=== PATIENT | male | born 1975 ===

== ENCOUNTER 2022-07-18 18:44 | Observation (INO) | payer MEDICAID, OTHER, SELFPAY ==
--- NOTE | ~2022-07-18 | CT_ITS ---
EXAMINATION: CT ABDOMEN AND PELVIS WITH CONTRAST CLINICAL INFORMATION: Abdominal pain. COMPARISON: None available. TECHNIQUE: Multidetector volumetric images were obtained from the superior aspect of the liver through the pubic symphysis following administration 85 mL of Omnipaque 350 intravenous contrast. Sagittal and coronal reformatted images were obtained on the technologist's workstation. Oral contrast: No This CT examination was performed using dose optimization techniques as appropriate, variously including the following: *Automated exposure control *Adjustment of mA and/or kV according to patient size (this includes techniques or standardized protocols for targeted exams where dose is matched to indication/reason for exam; i.e. extremities or head) *Use of iterative reconstruction technique DLP: 652 mGy-cm FINDINGS: LUNG BASES: No focal consolidation or pleural effusion. LIVER, GALLBLADDER, AND BILIARY TREE: The liver is enlarged but otherwise normal in shape and attenuation. No focal hepatic lesion. The gallbladder is not visualized, either decompressed or surgically removed. The common bile duct is dilated measuring up to 0.921 cm in diameter with no hyperdense calculi. No significant intrahepatic biliary ductal dilatation. No fat stranding or free fluid in the gallbladder fossa to suspect acute cholecystitis. PANCREAS: Unremarkable. SPLEEN: Not visualized, correlate with history of splenectomy. ADRENAL GLANDS: Unremarkable. KIDNEYS AND URETERS: Symmetric nephrograms. No hydronephrosis or nephrolithiasis. No perinephric fat stranding. Small cortical water density cysts in the right kidney for which no imaging follow-up is recommended. BLADDER: Decompressed limiting its evaluation. GASTROINTESTINAL TRACT: Gastric dilatation containing fluid and heterogeneous debris. Multiple distended fluid filled loops of the small bowel, with also fluid throughout the colon and rectum. No significant wall thickening. No pericolonic inflammatory changes to suspect acute colitis or diverticulitis. The appendix measures up to 7 mm in diameter with no significant wall thickening or inflammatory changes. ABDOMINAL WALL: No significant hernia is appreciated. LYMPH NODES: Mild mesenteric vasculature engorgement with scattered prominent but subcentimeter in short axis mesenteric lymph nodes. Minimal mesenteric fat haziness. VASCULAR: Abdominal aorta is normal in caliber. PELVIC VISCERA: Unremarkable. OSSEOUS STRUCTURES: Nonspecific trabecular thickening and heterogeneity of the bone marrow. No aggressive appearing osseous abnormalities or acute fractures. CT/CT abdomen pelvis w IV con IMPRESSION: Fluid-filled loops of small and large bowel, including rectum suggesting gastroenteritis and diarrhea. There is associated mesenteric vasculature engorgement and prominent mesenteric lymph nodes, likely reactive. Prominent gastric dilatation that could be seen with postprandial state, gastroparesis or less likely in this particular case gastric outlet obstruction. Hepatomegaly. The spleen is not seen. There is nonspecific trabecular thickening and heterogeneity of the bone marrow, findings could indicate the presence of some chronic anemia or hematologic disorder such as sickle cells disease, correlate with clinical history. The gallbladder is not seen, possibly decompressed or surgically removed with nonspecific dilatation of the CBD measuring up to 1 cm. If choledocholithiasis is suspected correlation with MRCP could be performed.
[2022-07-18 18:51] VITALS: BP 135/93; PULSE 102; RESP 16; TEMP 36.8; O2SAT 96; BMI 32.3
[2022-07-18 20:05] LABS: Basophils Percent Auto 0.3 % (0-2); Eosinophils Absolute Auto 0.4 X10*3/uL (0.0-0.4); Eosinophils Percent Auto 2.5 % (0-4); Hematocrit 36.8 % (42.0-52.0); Hemoglobin 11.7 g/dl (14.0-18.0); Imm Gran Abs Auto 0.13 X10*3/uL (0.00-0.03); Imm Gran Pct Auto 0.9 % (0.0-0.4); Lymphocytes Absolute Auto 3.1 X10*3/uL (1.2-4.9); Lymphocytes Percent Auto 20.9 % (20-40); MANUAL DIFF FLAG SCAN; Mean Corpuscular HGB Conc 31.8 g/dl (31.0-36.0); Mean Corpuscular Hemoglobin 35.2 pg (27.0-33.0); Mean Platelet Volume 11.4 fL (9.4-12.4); Monocytes Percent Auto 19.9 % (2-11); Neutrophils Absolute Auto 8.3 x10*3/uL (2.0-8.3); Neutrophils Percent Auto 55.5 % (45-73); Platelet Count 376 X10*3/uL (160-400); Red Blood Count 3.32 X10*6/uL (4.60-5.80); SCAN SMEAR FLAG 1
[2022-07-18 20:12] LABS: Alanine Aminotransferase 38 U/L (0-40); Albumin Level 5.1 g/dL (3.5-5.0); Alkaline Phosphatase 129 U/L (39-117); Anion Gap 15 (12-20); Aspartate Amino Transferase 47 U/L (5-37); Bilirubin Direct 0.6 mg/dL (0.0-0.5); Bilirubin Total 2.8 mg/dL (0.0-1.0); Blood Urea Nitrogen 31 mg/dL (9-16); Calcium 9.3 mg/dL (8.4-10.2); Carbon Dioxide 16 mmol/L (22-29); Chloride 110 mmol/L (96-108); Estimated Glomerular Filt Rate > 60; Glucose Random 136 mg/dL (60-115); Lipase 31 U/L (8-78); Potassium 4.6 mmol/L (3.3-5.1); Sodium 136 mmol/L (135-145); Total Protein 9.2 g/dL (6.5-8.0)
[2022-07-18 20:16] LABS: Mean Corpuscular Volume 110.8 fL (80.0-98.0); NRBC Pct Auto 2.4 /100WBC (0.0-0.2)
[2022-07-18 20:30] VITALS: BP 127/89; PULSE 98; RESP 22; TEMP 37.2; O2SAT 99
--- NOTE | 2022-07-18 20:38 | PC.NURSE ---
Patient is alert ad oriented x4. VSS. Patient reports occasional cramp like pain in his abdomen. Patient c/o nausea and watery, brown diarrhea-about 10 episodes today. Labs drawn at the triage. IV line established in R AC 20 G. Patient oriented to ED room, call hale within patient's reach. Patient's daughter at bedside. Patient awaiting for ED provider.
[2022-07-18 21:07] LABS: SLIDE REVIEW VERIFIED
--- NOTE | 2022-07-18 21:32 | ED.NAVMDI ---
HPI - Nausea/Vomiting/Diarrhea General Chief complaint: Abdominal Pain Stated complaint: diarrhea 2 days Time Seen by Provider: 07/18/22 21:00 Source: patient and family Mode of arrival: ambulatory History of Present Illness HPI Narrative: 46-year-old male with history of chronic anemia who reports 2 days of watery diarrhea with associated nausea and chills after eating shrimp cocktail the other day but he states there were several others that ate the same meal and are not having similar symptoms. Patient denies any recent antibiotic use. Related Data Allergies Allergy/AdvReac Type Severity Reaction Status Date / Time Unable to Assess Allergy Verified 07/18/22 21:02 Review of Systems Review of Systems: Pertinent positives and negatives as stated in HPI [facility] Past Medical History Source: nursing notes reviewed Social History Social History Alcohol intake: current Alcohol intake frequency: holidays/special occasions only Alcohol type: beer Smoked in Last 30 Days: No Use of substances other than those prescribed or required for medical reasons: No Advance Directives: No Advance Directives Information Provided: No Physical Exam Vital Signs: Vital Signs: Last Vital Signs Temp 98.1 F 07/19/22 00:34 Pulse 77 07/19/22 00:34 Resp 21 H 07/19/22 00:34 BP 132/74 07/19/22 00:34 Pulse Ox 96 07/19/22 00:34 O2 Del Method Room Air 07/19/22 00:34 BMI result Body Mass Index 32.3 VITAL SIGNS: Reviewed. GENERAL: Well developed, well nourished, in no acute distress. HEAD: Normocephalic/atraumatic EYES: PERRLA, EOMI EARS: Ext canals without abnormality, TMs non-bulging and non-erythematous NOSE: Nares patent bilateral OROPHARYNX: no oral lesions noted, posterior pharynx clear and non-erythematous without noted tonsillar enlargement/erythema/exudates NECK: Supple, no adenopathy LUNGS: Normal breath sounds. No adventitious sounds or accessory muscle use. SpO2<99> CARDIOVASCULAR: Regular rate and rhythm without noted murmurs ABDOMEN: Soft, non-tender, non-distended with bowel sounds. MUSCULOSKELETAL: No tenderness, deformities, or effusions noted on gross inspection. EXTREMITIES: No cyanosis, clubbing or edema. SKIN: Inspection of the skin reveals no rashes NEUROLOGIC: Alert and oriented x 4. Strength and sensation to light touch were grossly intact x 4. Medications Administered Discontinued Medications Generic Name Dose Route Start Last Admin Trade Name Ziggy PRN Reason Stop Dose Admin Sodium Chloride 1,000 mls @ 999 mls/hr 07/18/22 21:15 07/18/22 22:52 Ns IV 07/18/22 22:15 Infused .Q1H1M DARIA Infusion Sodium Chloride 1,000 mls @ 999 mls/hr 07/18/22 21:45 07/18/22 22:54 Ns IV 07/18/22 22:45 Infused .Q1H1M DARIA Infusion Piperacillin Sod/Tazobactam 50 mls @ 100 mls/hr 07/18/22 21:36 07/18/22 22:15 Sod 3.375 gm/ Sodium Chloride IV 07/18/22 22:05 Infused ONCE ONE Infusion Iohexol 100 ml 07/18/22 22:05 07/18/22 22:05 Iohexol 350 Mg/Ml 100 Ml Infus..Btl IV 07/18/22 22:06 85 ml ONCE ONE Administration Ondansetron HCl 4 mg 07/18/22 21:35 07/18/22 21:53 Ondansetron Hcl 4 Mg/2 Ml Vial IVPUSH 07/18/22 21:36 4 mg ONCE ONE Administration Medical Decision Making Medical Decision Making [facility] Narrative: 2134: 46-year-old male with history and clinical presentation suggestive of food poisoning/gastroenteritis/diverticulitis/colitis. Review of investigations in my interpretation is this patient has abdominal pain with enteritis/leukocytosis. Patient has been rehydrated received antibiotics. I discussed the case with the inpatient hospitalist who accepts admission due to patient's underlying medical condition of sickle cell. Differential Diagnosis Please see the discussion above Consult Healthcare Provider Management of the patient was discussed with: Hospitalist Please see the discussion above Lab Data Please see the discussion above 07/18/22 19:43 07/18/22 19:43 Labs: Lab Results 07/18/22 07/18/22 07/18/22 Range/Units 19:43 19:43 21:28 WBC 15.0 H (4.8-10.8) X10*3/uL RBC 3.32 L (4.60-5.80) X10*6/uL Hgb 11.7 L (14.0-18.0) g/dl Hct 36.8 L (42.0-52.0) % MCV 110.8 H (80.0-98.0) fL MCH 35.2 H (27.0-33.0) pg MCHC 31.8 (31.0-36.0) g/dl RDW 13.0 (11.0-16.0) % Plt Count 376 (160-400) X10*3/uL MPV 11.4 (9.4-12.4) fL Immature Gran % (Auto) 0.9 H (0.0-0.4) % Neut % (Auto) 55.5 (45-73) % Lymph % (Auto) 20.9 (20-40) % [place] % (Auto) 19.9 H (2-11) % Eos % (Auto) 2.5 (0-4) % Baso % (Auto) 0.3 (0-2) % Lymph # (Auto) 3.1 (1.2-4.9) X10*3/uL [place] # (Auto) 3.0 H (0.1-1.2) X10*3/uL Eos # (Auto) 0.4 (0.0-0.4) X10*3/uL Baso # (Auto) 0.0 (0.0-0.2) X10*3/uL Abs Immat Gran (auto) 0.13 H (0.00-0.03) X10*3/uL Absolute Neuts (auto) 8.3 (2.0-8.3) x10*3/uL Absolute Nucleated RBC 0.360 H (0.0-0.012) X10*3/uL Nucleated RBC % (auto) 2.4 H (0.0-0.2) /100WBC Smear Tech's Comments VERIFIED Absolute Retic 0.866 H (0.026-0.095) X10*6/uL Percent Retic 26.3 H (0.5-1.8) % Immature Retic Fraction 22.6 H (2.3-13.4) % Retic Hgb Equivalent 37.1 H (30.0-35.0) pg Sodium 136 (135-145) mmol/L Potassium 4.6 (3.3-5.1) mmol/L Chloride 110 H (96-108) mmol/L Carbon Dioxide 16 L (22-29) mmol/L Anion Gap 15 (12-20) BUN 31 H (9-16) mg/dL Creatinine 1.12 (0.5-1.4) mg/dL Estim Creat Clear Calc 85.0 Estimated GFR > 60 Random Glucose 136 H (60-115) mg/dL Lactic Acid 0.9 (0.5-2.0) mmol/L Calcium 9.3 (8.4-10.2) mg/dL Total Bilirubin 2.8 H (0.0-1.0) mg/dL Direct Bilirubin 0.6 H (0.0-0.5) mg/dL AST 47 H (5-37) U/L ALT 38 (0-40) U/L Alkaline Phosphatase 129 H (39-117) U/L Total Protein 9.2 H (6.5-8.0) g/dL Albumin 5.1 H (3.5-5.0) g/dL Lipase 31 (8-78) U/L Urine Color Urine Appearance Urine pH (5.0-9.0) Ur Specific [place] (1.005-1.025) Urine Protein (Neg-Trace) mg/dL Urine Glucose (UA) (Negative) mg/dL Urine Ketones (Negative) mg/dL Urine Blood (Negative) Urine Nitrite (Negative) Ur Leukocyte Esterase (Negative) Urine RBC (0-2) /HPF Urine WBC (0-5) /HPF Ur Squamous Epith Cells (0-2) /HPF Urine Bacteria (None Seen) Hyaline Casts (0-2) /LPF COVID-19 ([facility]) (Negative) COVID-19 Clin Com 07/18/22 07/19/22 Range/Units 22:09 00:48 WBC (4.8-10.8) X10*3/uL RBC (4.60-5.80) X10*6/uL Hgb (14.0-18.0) g/dl Hct (42.0-52.0) % MCV (80.0-98.0) fL MCH (27.0-33.0) pg MCHC (31.0-36.0) g/dl RDW (11.0-16.0) % Plt Count (160-400) X10*3/uL MPV (9.4-12.4) fL Immature Gran % (Auto) (0.0-0.4) % Neut % (Auto) (45-73) % Lymph % (Auto) (20-40) % [place] % (Auto) (2-11) % Eos % (Auto) (0-4) % Baso % (Auto) (0-2) % Lymph # (Auto) (1.2-4.9) X10*3/uL [place] # (Auto) (0.1-1.2) X10*3/uL Eos # (Auto) (0.0-0.4) X10*3/uL Baso # (Auto) (0.0-0.2) X10*3/uL Abs Immat Gran (auto) (0.00-0.03) X10*3/uL Absolute Neuts (auto) (2.0-8.3) x10*3/uL Absolute Nucleated RBC (0.0-0.012) X10*3/uL Nucleated RBC % (auto) (0.0-0.2) /100WBC Smear Tech's Comments Absolute Retic (0.026-0.095) X10*6/uL Percent Retic (0.5-1.8) % Immature Retic Fraction (2.3-13.4) % Retic Hgb Equivalent (30.0-35.0) pg Sodium (135-145) mmol/L Potassium (3.3-5.1) mmol/L Chloride (96-108) mmol/L Carbon Dioxide (22-29) mmol/L Anion Gap (12-20) BUN (9-16) mg/dL Creatinine (0.5-1.4) mg/dL Estim Creat Clear Calc Estimated GFR Random Glucose (60-115) mg/dL Lactic Acid (0.5-2.0) mmol/L Calcium (8.4-10.2) mg/dL Total Bilirubin (0.0-1.0) mg/dL Direct Bilirubin (0.0-0.5) mg/dL AST (5-37) U/L ALT (0-40) U/L Alkaline Phosphatase (39-117) U/L Total Protein (6.5-8.0) g/dL Albumin (3.5-5.0) g/dL Lipase (8-78) U/L Urine Color Dark Yellow Urine Appearance Cloudy Urine pH 5.5 (5.0-9.0) Ur Specific [place] 1.025 (1.005-1.025) Urine Protein 100 (2+) H (Neg-Trace) mg/dL Urine Glucose (UA) Negative (Negative) mg/dL Urine Ketones Negative (Negative) mg/dL Urine Blood Trace H (Negative) Urine Nitrite Negative (Negative) Ur Leukocyte Esterase Negative (Negative) Urine RBC 0-2 (0-2) /HPF Urine WBC 0-5 (0-5) /HPF Ur Squamous Epith Cells 3-5 (0-2) /HPF Urine Bacteria None Seen (None Seen) Hyaline Casts 11-20 (0-2) /LPF COVID-19 ([facility]) Negative (Negative) COVID-19 Clin Com See Note Radiology Impression Radiologist Impression: My interpretation is in agreement with radiology's impression of the imaging study Discharge Plan Discharge Clinical Impression: Food poisoning, Enteritis, Sickle cell anemia without crisis Patient Disposition: Admitted As Inpatient
[2022-07-18 21:46] VITALS: BP 130/89; PULSE 99; RESP 20; TEMP 37.3; O2SAT 96
[2022-07-18 21:49] LABS: Lactic Acid 0.9 mmol/L (0.5-2.0)
[2022-07-18] MEDS: Piperacillin Sodium/Tazobactam 3.375 GM in 0.9 % Sodium Chloride 50 ML IV (21:50)
[2022-07-18] MEDS: 0.9 % Sodium Chloride 1,000 ML 999 ML IV ×2 (21:52→21:53)
[2022-07-18] MEDS: ondansetron HCL 4 MG/2 ML VIAL IVPUSH (21:53)
[2022-07-18] MEDS: iohexoL 350 MG/ML 100 ML INFUS..BTL IV (22:05)
[2022-07-18 22:19] LABS: Appearance Urine Cloudy; Color Urine Dark Yellow; Glucose Urine UA Negative (Negative); Leukocyte Esterase Urine Negative (Negative); Nitrite Urine Negative (Negative); PH 5.5 (5.0-9.0); Specific Gravity - Urine 1.025 (1.005-1.025); UMIC TRIGGER UACC YES; Urine Blood Trace (Negative); Urine Ketones Negative (Negative); Urine Protein 100 (2+) mg/dL (Neg-Trace)
[2022-07-18 22:37] LABS: Bacteria Urine None Seen (None Seen); RBC Urine 0-2 /HPF (0-2); WBC Urine 0-5 /HPF (0-5)
[2022-07-18 22:43] VITALS: BP 180/86; PULSE 96; RESP 17; O2SAT 94
[2022-07-18 23:47] VITALS: BP 107/65; PULSE 80; RESP 17; TEMP 37.2; O2SAT 95
[2022-07-19] VITALS (8 sets, daily range): BP systolic 111–135; BP diastolic 60–80; PULSE 63–77; RESP 18–21; TEMP 36.1–37.2; O2SAT 96–97; BMI 32.5
[2022-07-19 00:49] LABS: Immature Retic Fraction 22.6 % (2.3-13.4); Retic HGB Equivalent 37.1 pg (30.0-35.0)
[2022-07-19 01:09] LABS: RET ABN SCTR 1; Reticulocytes Absolute 0.866 X10*6/uL (0.026-0.095)
[2022-07-19 01:10] LABS: Reticulocyte Percent 26.3 % (0.5-1.8)
[2022-07-19 01:11] LABS: COVID-19 Test Negative (Negative); IDNOW Serial# 6674DD1D
[2022-07-19] MEDS: Lactated Ringers 1,000 ML 150 ML IVCONT ×4 (01:34→23:56)
--- NOTE | 2022-07-19 02:48 | PC.NURSE ---
Nurse to nurse report given to POWER Mendoza, patient to be transported to [id number] by instrument and electrical technician.
--- NOTE | 2022-07-19 03:05 | PC.NURSE ---
Pt arrived to the unit via stretcher, he is alert and oriented X 4, respiration is even and non-labored. Ambulate independently with a steady gait. Denies nausea, no vomiting. All questions answered, pt has no concerns at this time, daughter at bedside and aware of plan of care.
--- NOTE | 2022-07-19 06:41 | P.HPHOSP_ITS ---
History of Present Illness Date of Service: 07/19/22 Chief Complaint: Abdominal pain diarrhea This is a 46-year-old male with past medical history of sickle cell disease presents to the hospital with complaints of abdominal pain as well as diarrhea for the past 2 days. Pain is lower abdomen, constant, nonradiating, not relieving or exacerbating factors, 5/10, associated with 10 episodes of diarrhea daily. Patient denies any fever, has chills, denies any shortness of breath, has some nausea with no vomiting, no urinary symptoms and no lower extremity edema. Patient denies any history of recent antibiotic or hospitalization On arrival to the ED patient hemodynamically stable with no significant abnormal vitals Labs are significant for WBC count of 15, hemoglobin of 11.7, hematocrit 36.8 which is above his baseline, retic of 37.1, total bili of 2.8, direct of 0.6, AST of 47, ALT of 38 which is improved from his baseline, UA negative for any acute infection, GI panel pending, COVID-[address] shows evidence of gastroenteritis Review of Systems Review of Systems: Yes all other systems are reviewed and are negative PMFSH Social History Household Members: Family Housing: Apartment Alcohol intake: current Alcohol intake frequency: holidays/special occasions only Alcohol type: beer Patient Tobacco Use Status: Never used Tobacco Smoked in Last 30 Days: No Use of substances other than those prescribed or required for medical reasons: No Currently Displaying Signs/Symptoms of Drug Intoxication Withdrawal: No Have you been hit, kicked, punched, or otherwise hurt by someone within the past year? If so, by whom?: No Do you feel safe in your current relationship?: Yes Is there a partner from a previous relationship who is making you feel unsafe now?: No Are you made to feel afraid or neglected: No Advance Directives: No Advance Directives Information Provided: No Do you have thoughts of harming others: None Do you have a plan to hurt others: No Plan Recently lost weight without trying: No Eating poorly because of decreased appetite: No Nutrition Risks: No Nutritional Risk Meds Allergies Allergy/AdvReac Type Severity Reaction Status Date / Time Unable to Assess Allergy Verified 07/18/22 21:02 Active Medications: Current Medications Acetaminophen (Acetaminophen 325 Mg Tablet) 650 mg PO Q6H PRN PRN Reason: Pain, Mild (Pain Scale 1-3) Lactated Ringer's (Lr) 1,000 mls @ 150 mls/hr IVCONT .Q6H40M [facility] Last Admin: 07/19/22 01:34 Dose: 150 mls/hr Ondansetron HCl (Ondansetron Hcl 4 Mg/2 Ml Vial) 4 mg IVPUSH Q8H PRN PRN Reason: Nausea and Vomiting Sodium Chloride (0.9 % Sodium Chloride Flush 3 Ml Syringe) 3 ml IVFLUSH QSHIFT [facility] Physical Exam Vital Signs and Narrative: Vital Signs: Last Vital Signs Temp 97.5 F 07/19/22 03:32 Pulse 69 07/19/22 03:32 Resp 20 07/19/22 03:32 BP 129/72 07/19/22 03:32 Pulse Ox 96 07/19/22 03:32 O2 Del Method Room Air 07/19/22 03:32 BMI result Body Mass Index 32.5 Const: General: cooperative and no acute distress Orientation/consciousness: patient oriented x3 Eyes: General: appearance normal, both eyes and all related structures Resp: Effort & Inspection: normal respiratory effort Auscultation: clear to auscultation bilaterally Cardio: Rate: regular rate Rhythm: regular rhythm GI: Other: Abdomen is diffusely tender, no rebound or guarding Palpation (GI): Soft to palpation Auscultation: normal bowel sounds Skin: General skin exam: no rashes or lesions noted Neuro: General: patient oriented x3 Cognition (Neuro): normal cognition Extrem: General: Yes normal to inspection and Yes no pedal edema Results Labs 07/18/22 19:43 07/18/22 19:43 Labs: Laboratory Results - last 24 hr 07/18/22 07/18/22 07/18/22 19:43 19:43 21:28 MCV 110.8 H MCH 35.2 H MCHC 31.8 RDW 13.0 Plt Count 376 MPV 11.4 Immature Gran % (Auto) 0.9 H Neut % (Auto) 55.5 Lymph % (Auto) 20.9 [place] % (Auto) 19.9 H Eos % (Auto) 2.5 Baso % (Auto) 0.3 Lymph # (Auto) 3.1 [place] # (Auto) 3.0 H Eos # (Auto) 0.4 Baso # (Auto) 0.0 Abs Immat Gran (auto) 0.13 H Absolute Neuts (auto) 8.3 Absolute Nucleated RBC 0.360 H Nucleated RBC % (auto) 2.4 H Smear Tech's Comments VERIFIED Absolute Retic 0.866 H Percent Retic 26.3 H Immature Retic Fraction 22.6 H Retic Hgb Equivalent 37.1 H Anion Gap 15 Estim Creat Clear Calc 85.0 Estimated GFR > 60 Random Glucose 136 H Lactic Acid 0.9 Calcium 9.3 Total Bilirubin 2.8 H Direct Bilirubin 0.6 H AST 47 H ALT 38 Alkaline Phosphatase 129 H Total Protein 9.2 H Albumin 5.1 H Lipase 31 Urine Color Urine Appearance Urine pH Ur Specific [place] Urine Protein Urine Glucose (UA) Urine Ketones Urine Blood Urine Nitrite Ur Leukocyte Esterase Urine RBC Urine WBC Ur Squamous Epith Cells Urine Bacteria Hyaline Casts COVID-19 ([facility]) COVID-19 AMS VariCode 07/18/22 07/19/22 22:09 00:48 MCV MCH MCHC RDW Plt Count MPV Immature Gran % (Auto) Neut % (Auto) Lymph % (Auto) [place] % (Auto) Eos % (Auto) Baso % (Auto) Lymph # (Auto) [place] # (Auto) Eos # (Auto) Baso # (Auto) Abs Immat Gran (auto) Absolute Neuts (auto) Absolute Nucleated RBC Nucleated RBC % (auto) Smear Tech's Comments Absolute Retic Percent Retic Immature Retic Fraction Retic Hgb Equivalent Anion Gap Estim Creat Clear Calc Estimated GFR Random Glucose Lactic Acid Calcium Total Bilirubin Direct Bilirubin AST ALT Alkaline Phosphatase Total Protein Albumin Lipase Urine Color Dark Yellow Urine Appearance Cloudy Urine pH 5.5 Ur Specific [place] 1.025 Urine Protein 100 (2+) H Urine Glucose (UA) Negative Urine Ketones Negative Urine Blood Trace H Urine Nitrite Negative Ur Leukocyte Esterase Negative Urine RBC 0-2 Urine WBC 0-5 Ur Squamous Epith Cells 3-5 Urine Bacteria None Seen Hyaline Casts 11-20 COVID-19 ([facility]) Negative COVID-19 Clin Com See Note Imaging Radiologist's Impressions: Impressions Abdomen/Pelvis CT 07/18/22 22:08 IMPRESSION: Fluid-filled loops of small and large bowel, including rectum suggesting gastroenteritis and diarrhea. There is associated mesenteric vasculature engorgement and prominent mesenteric lymph nodes, likely reactive. Prominent gastric dilatation that could be seen with postprandial state, gastroparesis or less likely in this particular case gastric outlet obstruction. Hepatomegaly. The spleen is not seen. There is nonspecific trabecular thickening and heterogeneity of the bone marrow, findings could indicate the presence of some chronic anemia or hematologic disorder such as sickle cells disease, correlate with clinical history. The gallbladder is not seen, possibly decompressed or surgically removed with nonspecific dilatation of the CBD measuring up to 1 cm. If choledocholithiasis is suspected correlation with MRCP could be performed. Assessment and Plan (1) Gastroenteritis: Status: Acute (2) Sickle cell anemia without crisis: Status: Acute (3) Diarrhea: Qualifiers: Diarrhea type: infectious Qualified Code(s): A09 - Infectious g astroenteritis and colitis, unspecified Status: Acute Plan This is a 38-year-old male with past medical history of sickle cell presents to the hospital with complaints of abdominal pain and diarrhea found to have gastroenteritis. She is being admitted for observation to avoid dehydration in the setting of sickle cell # acute gastroenteritis - likely secondary to viral infection - GI panel as well as C diff pending - will treat with IV fluids, supportive measures # diarrhea - secondary to above - monitor resolution of symptoms - IV fluids - follow panel # sickle cell without crisis - patient will be on IV fluids to avoid dehydration - H&H stable - monitor symptoms DVT prophylaxis: Early ambulation Time Spent With Patient Time: Total time managing care of this patient today ____ minutes. Quality Stroke Does the patient have a stroke diagnosis?: No VTE Prior VTE?: No VTE Risk Level:: Medical - low VTE Device Contraindication: Treatment Not Indicated VTE Drug Contraindication: Treatment Not Indicated
[2022-07-19 06:47] LABS: Hematocrit 28.2 % (42.0-52.0); Mean Corpuscular HGB Conc 31.9 g/dl (31.0-36.0); Mean Corpuscular Hemoglobin 35.4 pg (27.0-33.0); Platelet Count 328 X10*3/uL (160-400); Red Blood Count 2.54 X10*6/uL (4.60-5.80); Red Cell Distribution Width 13.1 % (11.0-16.0)
[2022-07-19 06:51] LABS: NRBC Pct Auto 1.3 /100WBC (0.0-0.2); WBC ABN SCTR FOR CBC 1
[2022-07-19 07:06] LABS: Band Neutrophils Percent 1 % (3-5); Eosinophils Percent Manual 4 % (0-4); Lymphocytes Percent Manual 22 % (20-40); Monocytes Percent Manual 11 % (2-11); Neutrophils Percent Manual 62 % (45-73)
[2022-07-19 07:15] LABS: Acanthocytes 1+ (0-2) /OIF; Macrocytosis 2+ (15-30) /OIF; RBC Morphology NOTED
[2022-07-19 07:16] LABS: Burr Cells 1+ (0-2) /OIF; Target Cells 1+ (5-14) /OIF
[2022-07-19 07:18] LABS: Howell Jolly Bodies PRESENT; Hypochromasia 1+ (5-14) /OIF; Polychromasia 1+ (0-2) /OIF
[2022-07-19 07:20] LABS: Eosinophils Absolute Manual 0.6 X10*3/uL (0.0-0.4); Lymphocytes Absolute Manual 3.3 X10*3/uL (1.2-4.9); Monocytes Absolute Manual 1.6 X10*3/uL (0.1-1.2); Neutrophils Absolute Manual 9.4 X10*3/uL (2.0-8.3); Platelet Estimate NORMAL (NORMAL); Platelet Morphology Comment NORMAL; White Blood Count 14.9 X10*3/uL (4.8-10.8)
[2022-07-19 08:10] LABS: Anion Gap 10 (12-20); Blood Urea Nitrogen 24 mg/dL (9-16); Calcium 8.3 mg/dL (8.4-10.2); Carbon Dioxide 17 mmol/L (22-29); Chloride 115 mmol/L (96-108); Creatinine Clr Calc Pharmacy 125.8; Estimated Glomerular Filt Rate > 60; Glucose Random 108 mg/dL (60-115); Potassium 3.9 mmol/L (3.3-5.1); Sodium 138 mmol/L (135-145)
--- NOTE | 2022-07-19 08:34 | PHA.MEDREC ---
Pharmacy Consult ? Medication Reconciliation Pharmacy has completed the medication reconciliation. Spoke to patient to confirm meds. Patient does not take any medications regularly at home. Had previously taken Imodium and Pepto-Bismol on 07/18/22 because of diarrhea.
[2022-07-19 11:02] LABS: Adenovirus F 40/41 Not Detected (Not Detect.); Astrovirus Not Detected (Not Detect.); Campylobacter Not Detected (Not Detect.); Cryptosporidium Not Detected (Not Detect.); Cyclospora cayetanensis Not Detected (Not Detect.); E. coli EAEC Not Detected (Not Detect.); E. coli EPEC Not Detected (Not Detect.); E. coli ETEC Not Detected (Not Detect.); E. coli STEC Not Detected (Not Detect.); Entamoeba histolytica Not Detected (Not Detect.); Giardia lamblia Not Detected (Not Detect.); Norovirus GI/GII Not Detected (Not Detect.); Plesiomonas shigelloides Not Detected (Not Detect.); Rotavirus A Detected (Not Detect.); Salmonella Not Detected (Not Detect.); Sapovirus Not Detected (Not Detect.); Shigella sp./EIEC Not Detected (Not Detect.); Vibrio Not Detected (Not Detect.); Vibrio Cholerae Not Detected (Not Detect.); Yersinia enterocolitica Not Detected (Not Detect.)
--- NOTE | 2022-07-19 11:16 | HO.PM.IMPN ---
Subjective Subjective Date of Service: 07/19/22 Interval History: seen and examined this morning follow up for diarrhea history obtained with the assistance of a site interpreter still with diarrhea; intermittent crampy abdominal pain Review of Systems Review of Systems: Yes all other systems are reviewed and are negative Constitutional Constitutional: Reports chills and Denies fever(s) Cardiovascular Cardiovascular: Denies chest pain, Denies palpitations and Denies dyspnea Respiratory Respiratory: Denies cough and Denies dyspnea Gastrointestinal Gastrointestinal: Reports abdominal pain, Reports diarrhea, Denies nausea and Denies vomiting Endocrine Endocrine: Denies palpitations Physical Exam Vital Signs: Vital Signs: Last Vital Signs Temp 97.0 F 07/19/22 07:25 Pulse 65 07/19/22 07:25 Resp 18 07/19/22 07:25 BP 111/60 07/19/22 07:25 Pulse Ox 97 07/19/22 07:25 O2 Del Method Room Air 07/19/22 07:25 BMI result Body Mass Index 32.5 Const: General: alert and awake Nutritional Appearance: overweight Orientation/consciousness: patient oriented x3 Resp: Effort & Inspection: normal respiratory effort and able to speak in complete sentences Cardio: Rate: regular rate Heart sounds: S1 normal heart sound present and S2 normal heart sound present GI: Inspection: No distended Palpation (GI): Soft to palpation and nontender Neuro: General: patient oriented x3 and CN's II-XI intact bilaterally Extrem: General: Yes no pedal edema Objective Data Active Medications Acetaminophen (Acetaminophen 325 Mg Tablet) 650 mg PO Q6H PRN PRN Reason: Pain, Mild (Pain Scale 1-3) Lactated Ringer's (Lr) 1,000 mls @ 150 mls/hr IVCONT .Q6H40M [facility] Last Admin: 07/19/22 08:45 Dose: 150 mls/hr Documented By: ALYSSA Ondansetron HCl (Ondansetron Hcl 4 Mg/2 Ml Vial) 4 mg IVPUSH Q8H PRN PRN Reason: Nausea and Vomiting Pharmacy Consult (Consult Rx Perform Med Rec) 1 each MISCELLANE ONCE PRN PRN Reason: Consult order Sodium Chloride (0.9 % Sodium Chloride Flush 3 Ml Syringe) 3 ml IVFLUSH QSHIFT [facility] Last Admin: 07/19/22 08:46 Dose: Not Given Documented By: ALYSSA Non-Admin Reason: IV Running Labs 07/19/22 06:32 07/19/22 06:32 Labs: Laboratory Results - last 24 hr 07/18/22 07/18/22 07/18/22 19:43 19:43 21:28 MCV 110.8 H MCH 35.2 H MCHC 31.8 RDW 13.0 Plt Count 376 MPV 11.4 Immature Gran % (Auto) 0.9 H Neut % (Auto) 55.5 Lymph % (Auto) 20.9 [place] % (Auto) 19.9 H Eos % (Auto) 2.5 Baso % (Auto) 0.3 Lymph # (Auto) 3.1 [place] # (Auto) 3.0 H Eos # (Auto) 0.4 Baso # (Auto) 0.0 Abs Immat Gran (auto) 0.13 H Absolute Neuts (auto) 8.3 Absolute Nucleated RBC 0.360 H Nucleated RBC % (auto) 2.4 H Neutrophils % (Manual) Band Neutrophils % Lymphocytes % (Manual) Monocytes % (Manual) Eosinophils % (Manual) Abs Neuts (Manual) Lymphocytes # (Manual) Monocytes # (Manual) Eosinophils # (Manual) Platelet Estimate Plt Morphology Comment RBC Morphology Polychromasia Hypochromasia Macrocytosis Target Cells Negrete-Tusculum Bodies Grady Cells Acanthocytes (Spur) Smear Tech's Comments VERIFIED Absolute Retic 0.866 H Percent Retic 26.3 H Immature Retic Fraction 22.6 H Retic Hgb Equivalent 37.1 H Anion Gap 15 Estim Creat Clear Calc 85.0 Estimated GFR > 60 Random Glucose 136 H Lactic Acid 0.9 Calcium 9.3 Total Bilirubin 2.8 H Direct Bilirubin 0.6 H AST 47 H ALT 38 Alkaline Phosphatase 129 H Total Protein 9.2 H Albumin 5.1 H Lipase 31 Urine Color Urine Appearance Urine pH Ur Specific [place] Urine Protein Urine Glucose (UA) Urine Ketones Urine Blood Urine Nitrite Ur Leukocyte Esterase Urine RBC Urine WBC Ur Squamous Epith Cells Urine Bacteria Hyaline Casts Stl C. cayetanensis PCR Stool Rotavirus A PCR Stl Adenov F 40/41 PCR Stool Astrovirus (PCR) Stool Campylobacter PCR Stool Cryptosporidium PCR Stl Sh Tox Pr E STEC PCR Stool E coli O157 PCR Stl Enterotoxigenic E PCR Stool EPEC (PCR) Stool EAEC (PCR) Stl E. histolytica PCR Stool Giardia Lamblia PCR Stl P. shigelloides PCR Stool Salmonella PCR Stool Sapovirus (PCR) Stl Shigella/EIEC PCR St Y.enterocolitica PCR Stool Vibrio (PCR) Stl Vibrio cholerae PCR Stl Norovirus GI/GII PCR COVID-19 ([place]) COVID-19 [facility] 07/18/22 07/18/22 07/19/22 21:46 22:09 00:48 MCV MCH MCHC RDW Plt Count MPV Immature Gran % (Auto) Neut % (Auto) Lymph % (Auto) [place] % (Auto) Eos % (Auto) Baso % (Auto) Lymph # (Auto) [place] # (Auto) Eos # (Auto) Baso # (Auto) Abs Immat Gran (auto) Absolute Neuts (auto) Absolute Nucleated RBC Nucleated RBC % (auto) Neutrophils % (Manual) Band Neutrophils % Lymphocytes % (Manual) Monocytes % (Manual) Eosinophils % (Manual) Abs Neuts (Manual) Lymphocytes # (Manual) Monocytes # (Manual) Eosinophils # (Manual) Platelet Estimate Plt Morphology Comment RBC Morphology Polychromasia Hypochromasia Macrocytosis Target Cells Negrete-Tusculum Bodies Michael Cells Acanthocytes (Spur) Smear Tech's Comments Absolute Retic Percent Retic Immature Retic Fraction Retic Hgb Equivalent Anion Gap Estim Creat Clear Calc Estimated GFR Random Glucose Lactic Acid Calcium Total Bilirubin Direct Bilirubin AST ALT Alkaline Phosphatase Total Protein Albumin Lipase Urine Color Dark Yellow Urine Appearance Cloudy Urine pH 5.5 Ur Specific [place] 1.025 Urine Protein 100 (2+) H Urine Glucose (UA) Negative Urine Ketones Negative Urine Blood Trace H Urine Nitrite Negative Ur Leukocyte Esterase Negative Urine RBC 0-2 Urine WBC 0-5 Ur Squamous Epith Cells 3-5 Urine Bacteria None Seen Hyaline Casts 11-20 Stl C. cayetanensis PCR Not Detected Stool Rotavirus A PCR Detected A Stl Adenov F 40/41 PCR Not Detected Stool Astrovirus (PCR) Not Detected Stool Campylobacter PCR Not Detected Stool Cryptosporidium PCR Not Detected Stl Sh Tox Pr E STEC PCR Not Detected Stool E coli O157 PCR Not applicable Stl Enterotoxigenic E PCR Not Detected Stool EPEC (PCR) Not Detected Stool EAEC (PCR) Not Detected Stl E. histolytica PCR Not Detected Stool Giardia Lamblia PCR Not Detected Stl P. shigelloides PCR Not Detected Stool Salmonella PCR Not Detected Stool Sapovirus (PCR) Not Detected Stl Shigella/EIEC PCR Not Detected St Y.enterocolitica PCR Not Detected Stool Vibrio (PCR) Not Detected Stl Vibrio cholerae PCR Not Detected Stl Norovirus GI/GII PCR Not Detected COVID-19 ([place]) Negative COVID-19 Clin Com See Note 07/19/22 07/19/22 06:32 06:32 MCV 111.0 H MCH 35.4 H MCHC 31.9 RDW 13.1 Plt Count 328 MPV 11.0 Immature Gran % (Auto) Cancelled Neut % (Auto) Cancelled Lymph % (Auto) Cancelled [place] % (Auto) Cancelled Eos % (Auto) Cancelled Baso % (Auto) Cancelled Lymph # (Auto) Cancelled [place] # (Auto) Cancelled Eos # (Auto) Cancelled Baso # (Auto) Cancelled Abs Immat Gran (auto) Cancelled Absolute Neuts (auto) Cancelled Absolute Nucleated RBC 0.200 H Nucleated RBC % (auto) 1.3 H Neutrophils % (Manual) 62 Band Neutrophils % 1 L Lymphocytes % (Manual) 22 Monocytes % (Manual) 11 Eosinophils % (Manual) 4 Abs Neuts (Manual) 9.4 H Lymphocytes # (Manual) 3.3 Monocytes # (Manual) 1.6 H Eosinophils # (Manual) 0.6 H Platelet Estimate NORMAL Plt Morphology Comment NORMAL RBC Morphology NOTED Polychromasia 1+ (0-2) Hypochromasia 1+ (5-14) Macrocytosis 2+ (15-30) Target Cells 1+ (5-14) Negrete-Tusculum Bodies PRESENT Grady Cells 1+ (0-2) Acanthocytes (Spur) 1+ (0-2) Smear Tech's Comments Absolute Retic Percent Retic Immature Retic Fraction Retic Hgb Equivalent Anion Gap 10 L Estim Creat Clear Calc 125.8 Estimated GFR > 60 Random Glucose 108 Lactic Acid Calcium 8.3 L D Total Bilirubin Direct Bilirubin AST ALT Alkaline Phosphatase Total Protein Albumin Lipase Urine Color Urine Appearance Urine pH Ur Specific [place] Urine Protein Urine Glucose (UA) Urine Ketones Urine Blood Urine Nitrite Ur Leukocyte Esterase Urine RBC Urine WBC Ur Squamous Epith Cells Urine Bacteria Hyaline Casts Stl C. cayetanensis PCR Stool Rotavirus A PCR Stl Adenov F 40/41 PCR Stool Astrovirus (PCR) Stool Campylobacter PCR Stool Cryptosporidium PCR Stl Sh Tox Pr E STEC PCR Stool E coli O157 PCR Stl Enterotoxigenic E PCR Stool EPEC (PCR) Stool EAEC (PCR) Stl E. histolytica PCR Stool Giardia Lamblia PCR Stl P. shigelloides PCR Stool Salmonella PCR Stool Sapovirus (PCR) Stl Shigella/EIEC PCR St Y.enterocolitica PCR Stool Vibrio (PCR) Stl Vibrio cholerae PCR Stl Norovirus GI/GII PCR COVID-19 ([place]) COVID-19 Clin Com Assessment and Plan (1) Diarrhea: Status: Acute (2) Gastroenteritis: Status: Acute Plan This is a 38-year-old male with past medical history of sickle cell presents to the hospital with complaints of abdominal pain and diarrhea found to have gastroenteritis. She is being admitted for observation to avoid dehydration in the setting of sickle cell acute gastroenteritis GI panel + for rotavirus continue IV fluids, supportive measures sickle cell without crisis continue IVF H/H at baseline AZEB SCr 1.12 on admission, down to 0.76 with IVF r/t dehydration DVT prophylaxis: Early ambulation attending: Dr. William Time Spent With Patient Time: Total time managing care of this patient today ____ minutes. Quality Stroke Does the patient have a stroke diagnosis?: No VTE Prior VTE?: No VTE Risk Level:: Medical - low VTE Device Contraindication: Treatment Not Indicated VTE Drug Contraindication: Treatment Not Indicated
[2022-07-19 13:17] LABS: CDiff Gene PCR NEGATIVE (Negative)
--- NOTE | 2022-07-19 15:58 | MHC.CM.PN ---
[facility]STER 07/19/22 DELIVERED TO BEDSIDE AND PLACED IN CHART, EMR REVIEWED, PT ADMITTED W/GASTROENTERITIS AND DEHYDRATION, CM MET W/PT WHO IS A&OX4, PT REPORTS HE LIVES W/HIS AND 3 DTRS, IS INDEP W/ALL CARE, IS WORKING, DENIES USE OF DME/SERVICES, PT DOES NOT ANTIC NEED FOR SERVICES UPON D/C. PT VERIFIES HIS PCP IS NOW VINEET SINGH AT [facility], MODERNA X2 AND REPORTS HIS JESSI SZYMANSKI [phone] IS HIS HCP AND RPEORTS HE COMPLETED IT AT [facility],CM WILL NEED TO FOLLOW UP THURSDAY. D/C PLAN: HOME NO SERVICES W/ FOR TRANSPORT
--- NOTE | 2022-07-19 22:16 | PC.NURSE ---
Patient reports diarrhea for past 3 days which is not getting any better,positive for rotavirus ,Dr. Schumacher notified
[2022-07-20 00:55] VITALS: BP 125/61; PULSE 65; RESP 16; TEMP 36.7; O2SAT 97
[2022-07-20 04:00] VITALS: BP 111/57; PULSE 62; RESP 20; TEMP 36.5; O2SAT 96
[2022-07-20] MEDS: Lactated Ringers 1,000 ML 150 ML IVCONT (06:28)
[2022-07-20 06:33] LABS: Alanine Aminotransferase 34 U/L (0-40); Albumin Level 3.7 g/dL (3.5-5.0); Alkaline Phosphatase 91 U/L (39-117); Anion Gap 8 (12-20); Aspartate Amino Transferase 34 U/L (5-37); Bilirubin Direct 0.4 mg/dL (0.0-0.5); Bilirubin Total 3.1 mg/dL (0.0-1.0); Blood Urea Nitrogen 21 mg/dL (9-16); Calcium 8.3 mg/dL (8.4-10.2); Carbon Dioxide 18 mmol/L (22-29); Chloride 117 mmol/L (96-108); Creatinine Clr Calc Pharmacy 140.7; Estimated Glomerular Filt Rate > 60; Glucose Random 96 mg/dL (60-115); Potassium 3.8 mmol/L (3.3-5.1); Sodium 139 mmol/L (135-145); Total Protein 6.4 g/dL (6.5-8.0)
[2022-07-20 07:34] VITALS: BP 107/57; PULSE 59; RESP 20; TEMP 36.8; O2SAT 95
[2022-07-20] MEDS: 0.9 % Sodium Chloride Flush 3 ML SYRINGE IVFLUSH (08:48)
--- NOTE | 2022-07-20 09:58 | P.DS_ITS ---
DS: Providers Provider Date of Service: 07/20/22 Date of admission: 07/19/22 01:14 Date of discharge: 07/20/22 Primary care physician: [facility] Attending physician on discharge: Paco Quan Discharging clinician: Nathalie Garay DS: Diagnosis Discharge Diagnosis (1) Diarrhea: Status: Acute (2) Gastroenteritis: Status: Acute (3) Rotavirus infection: Status: Acute DS: Summary Hospital Course Hospital Course: From H&P on day of admission This is a 46-year-old male with past medical histo ry of sickle cell disease presents to the hospital with complaints of abdominal pain as well as diarrhea for the past 2 days.? Pain is lower abdomen, constant, nonradiating, not relieving or exacerbating factors, 5/10, associated with 10 episodes of diarrhea daily.? Patient denies any fever, has chills, denies any shortness of breath, has some nausea with no vomiting, no urinary symptoms and no lower extremity edema.? Patient denies any history of recent antibiotic or hospitalization On arrival to the ED patient hemodynamically stable with no significant abnormal vitals Labs are significant for WBC count of 15, hemoglobin of 11.7, hematocrit 36.8 which is above his baseline, retic of 37.1, total bili of 2.8, direct of 0.6, AST of 47, ALT of 38 which is improved from his baseline, UA negative for any acute infection, GI panel pending, COVID-[address] shows evidence of gastroenteritis viral gastroenteritis patient was admitted to the hospital for gastroenteritis. He was treated with IV fluid, antiemetics. GI panel was obtained any tested positive for rotavirus. His abdominal pain resolved and diarrhea gradually improved. He is tolerating a full diet and is eager to return home. Hand washing precautions was discussed with the patient and at the bedside. AZEB with SCr 1.12 on admission, down to 0.68 with IVF. Time Spent with Patient Time attestation: Total time managing care of this patient today ____ minutes. Discharge coordination time: Greater than 30 minutes Quality: Safe Use of Opioids Does Pt have an Active Cancer Diagnosis on the Problem List?: No Quality: Stroke Does the patient have a stroke diagnosis?: No Physical Exam Vital Signs: Vital Signs: Last Vital Signs Temp 98.2 F 07/20/22 07:34 Pulse 59 07/20/22 07:34 Resp 20 07/20/22 07:34 BP 107/57 L 07/20/22 07:34 Pulse Ox 95 07/20/22 07:34 O2 Del Method Room Air 07/20/22 07:34 BMI result Body Mass Index 32.5 Const: General: alert and awake Nutritional Appearance: overweight Orientation/consciousness: patient oriented x3 Resp: Effort & Inspection: normal respiratory effort and able to speak in complete sentences Cardio: Rate: regular rate Heart sounds: S1 normal heart sound present and S2 normal heart sound present GI: Inspection: No distended Palpation (GI): Soft to palpation and nontender Neuro: General: patient oriented x3 and CN's II-XI intact bilaterally Extrem: General: Yes no pedal edema DS: Data Data Completed and Pending Labs on day of discharge: Laboratory Results - last 24 hr 07/18/22 07/19/22 07/20/22 21:46 12:20 05:57 Sodium 139 Potassium 3.8 Chloride 117 H Carbon Dioxide 18 L Anion Gap 8 L BUN 21 H Creatinine 0.68 Estim Creat Clear Calc 140.7 Estimated GFR > 60 Random Glucose 96 Calcium 8.3 L Total Bilirubin 3.1 H Direct Bilirubin 0.4 AST 34 ALT 34 Alkaline Phosphatase 91 Total Protein 6.4 L Albumin 3.7 Stl C. cayetanensis PCR Not Detected Stool Rotavirus A PCR Detected A Stl Adenov F 40/41 PCR Not Detected Stool Astrovirus (PCR) Not Detected Stool Campylobacter PCR Not Detected Stool Cryptosporidium PCR Not Detected Stl Sh Tox Pr E STEC PCR Not Detected Stool E coli O157 PCR Not applicable Stl Enterotoxigenic E PCR Not Detected Stool EPEC (PCR) Not Detected Stool EAEC (PCR) Not Detected Stl E. histolytica PCR Not Detected Stool Giardia Lamblia PCR Not Detected Stl P. shigelloides PCR Not Detected Stool Salmonella PCR Not Detected Stool Sapovirus (PCR) Not Detected Stl Shigella/EIEC PCR Not Detected St Y.enterocolitica PCR Not Detected Stool Vibrio (PCR) Not Detected Stl Vibrio cholerae PCR Not Detected Stl Norovirus GI/GII PCR Not Detected C. difficile Tox B Gene NEGATIVE Preliminary micro results at discharge 07/18/22 21:28 Blood Culture - Preliminary Blood - Venous No growth after 24 hours. 07/18/22 21:28 Blood Culture - Preliminary Blood - Venous No growth after 24 hours. Discharge Plan Discharge Anticipated Discharge Date/Time: 07/20/22 10:03 Patient Disposition: Home, Self-Care Discharge Diagnosis: Rotavirus gastroenteritis Referrals: [place] [Primary Care Provider] - 1 Week Discharge Medications: Continued loperamide [Imodium] 2 mg Capsule 2 mg PO Q6H PRN (Reason: Diarrhea) Rx Instructions: max 8mg/day Pepto-Bismol 525 mg/15 mL Suspension 525 mg PO Q30M PRN (Reason: Diarrhea) Rx Instructions: do not exceed 8 doses in a 24 hour period Discharge Orders: Discharge Order (Routine); Ordered 07/20/22 Ordered By: Nathalie Garay Activity on Discharge: As tolerated Stand Alone Forms: Patient Portal Discharge page Care Plan Goals: Resolution of diarrhea Health Concerns: diarrhea secondary to Rotavirus Plan of Treatment: advance diet as tolerated. Keep plenty of fluid to stay hydrated wash hands frequently. Use soap and water. If soap and water are not available, use a gel-based hand green lumber grader. Wash your hands after you use the bathroom, change a child's diapers, or sneeze. Wash your hands before you prepare or eat food. Assessment: see discharge summary
--- NOTE | 2022-07-20 10:15 | MHC.CM.PN ---
PT MEDICALLY CLEARED FRO D/C HOME SELF CARE W/FAMILY FOR TRANSPORT
== END 2022-07-20 10:28 | disposition home or self-care (01) ==
LOC: HO.ED 07-19 01:31 → HO.EDOVER 07-19 01:34 → HO.IMC 07-19 02:11
PROVIDERS: Admitting Provider Internal Medicine; Emergency Provider Student in an Organized Health Care Education/Training Program; PCP Family Medicine; Visit Provider Physician Assistant Medical
DX: A08.0 Rotaviral enteritis (principal); D57.1 Sickle-cell disease without crisis; R10.30 Lower abdominal pain, unspecified
CPT/HCPCS: 36415; 74177; 80048; 80076; 81001; 83605; 83690; 85007; 85025; 85027; 85045; 87040; 87493; 87507; 87635; 96361; 96365; 96375; 99222; 99285; J2405; J2543; Q9967

== ENCOUNTER 2023-01-23 10:43 | Outpatient (REF) | payer MEDICAID, OTHER, SELFPAY ==
--- NOTE | ~2023-01-23 | XR_ITS ---
STUDY: Bilateral knees INDICATION: Worsening chronic bilateral knee pain. TECHNIQUE: 3 view right knee, 4 view left knee FINDINGS: Right: No fracture or dislocation. Alignment and articulations maintained. Tiny suprapatellar effusion questioned. Left: Mild medial knee joint narrowing. No fracture or dislocation. Question small effusion. XR/XR knee RT 3V IMPRESSION: No acute bony pathology bilateral knees. Mild left medial knee joint narrowing. Question small suprapatellar effusions.
--- NOTE | ~2023-01-23 | XR_ITS ---
STUDY: Bilateral knees INDICATION: Worsening chronic bilateral knee pain. TECHNIQUE: 3 view right knee, 4 view left knee FINDINGS: Right: No fracture or dislocation. Alignment and articulations maintained. Tiny suprapatellar effusion questioned. Left: Mild medial knee joint narrowing. No fracture or dislocation. Question small effusion. XR/XR knee LT 3V IMPRESSION: No acute bony pathology bilateral knees. Mild left medial knee joint narrowing. Question small suprapatellar effusions.
[2023-01-23 13:14] LABS: MANUAL DIFF FLAG NO
[2023-01-23 13:21] LABS: Basophils Absolute Auto 0.1 X10*3/uL (0.0-0.2); Basophils Percent Auto 0.8 % (0-2); Eosinophils Absolute Auto 0.2 X10*3/uL (0.0-0.4); Eosinophils Percent Auto 2.1 % (0-4); Hematocrit 30.5 % (42.0-52.0); Hemoglobin 9.6 g/dl (14.0-18.0); Imm Gran Abs Auto 0.06 X10*3/uL (0.00-0.03); Imm Gran Pct Auto 0.7 % (0.0-0.4); Lymphocytes Absolute Auto 2.7 X10*3/uL (1.2-4.9); Lymphocytes Percent Auto 30.8 % (20-40); Mean Corpuscular HGB Conc 31.5 g/dl (31.0-36.0); Mean Corpuscular Hemoglobin 36.8 pg (27.0-33.0); Monocytes Absolute Auto 1.1 X10*3/uL (0.1-1.2); Monocytes Percent Auto 12.3 % (2-11); Neutrophils Absolute Auto 4.7 x10*3/uL (2.0-8.3); Neutrophils Percent Auto 53.3 % (45-73); Platelet Count 323 X10*3/uL (160-400); Red Blood Count 2.61 X10*6/uL (4.60-5.80); Red Cell Distribution Width 13.1 % (11.0-16.0); White Blood Count 8.8 X10*3/uL (4.8-10.8)
[2023-01-23 13:25] LABS: Mean Corpuscular Volume 116.9 fL (80.0-98.0); NRBC Pct Auto 4.1 /100WBC (0.0-0.2)
[2023-01-23 15:22] LABS: Alanine Aminotransferase 32 U/L (0-40); Albumin Level 4.6 g/dL (3.5-5.0); Alkaline Phosphatase 121 U/L (39-117); Anion Gap 11 (12-20); Aspartate Amino Transferase 35 U/L (5-37); Bilirubin Direct 0.6 mg/dL (0.0-0.5); Bilirubin Total 3.7 mg/dL (0.0-1.0); Blood Urea Nitrogen 16 mg/dL (9-16); Calcium 9.3 mg/dL (8.4-10.2); Carbon Dioxide 25 mmol/L (22-29); Chloride 108 mmol/L (96-108); Cholesterol 159 mg/dL (<200); Estimated Glomerular Filt Rate > 60; Free T4 (Free Thyroxine) 0.86 ng/dL (0.71-1.85); Glucose Random 102 mg/dL (60-115); HDL Cholesterol 47 mg/dL (>40); Iron 305 mcg/dL (45-160); LDL Cholesterol Calculated 90 mg/dL (<100); Percent Iron Saturation 92 % (15-50); Potassium 4.2 mmol/L (3.3-5.1); Sodium 140 mmol/L (135-145); Thyroid Stimulating Hormone 1.18 uIU/mL (0.32-4.0); Total Iron Binding Capacity 330 mcg/dL (228-428); Triglycerides 114 mg/dL (<150); Unsaturated Iron Binding < 25 ug/dL
[2023-01-23 15:33] LABS: CT PCR NOT DETECTED (Not Detect.); NG PCR NOT DETECTED (Not Detect.)
[2023-01-26 07:53] LABS: Syphilis Screen Nonreactive (Nonreactive)
[2023-01-26 08:40] LABS: HBS Num1 0.31 mIU/mL (0-7.99); HBsAGNum1 0.37 S/CO (0.00-0.99); HIV AB/AG Nonreactive (Nonreactive); HIV Num 1 0.05 S/CO (0.00-0.99); Hepatitis B Surface Antigen Negative (Negative); ~HepC Num1 0.07 S/CO (0.00-0.79); ~Hepatitis B Surface Antibody NONREACTIVE (Nonreactive); ~Hepatitis C Antibody Nonreactive (Nonreactive)
[2023-01-26 08:43] LABS: Hepatitis A Antibody IgM 0.26 Index (0-0.79); ~Hepatitis A Antibody IgM Nonreactive (Nonreactive)
== END 2023-01-23 10:44 | disposition home or self-care (01) ==
LOC: HO.HHCL 10:43
PROVIDERS: Visit Provider Family Medicine
DX: Z00.00 Encounter for general adult medical examination without abnormal findings (principal); G89.29 Other chronic pain; M25.561 Pain in right knee; M25.562 Pain in left knee; Z90.81 Acquired absence of spleen
CPT/HCPCS: 0353U; 73562; 80048; 80061; 80076; 82306; 83036; 83540; 84439; 84443; 85025; 86684; 86706; 86709; 86780; 86803; 87340; 87389

== ENCOUNTER 2023-06-27 14:08 | Emergency (ER) | payer MEDICAID, OTHER, SELFPAY ==
[2023-06-27 14:10] VITALS: BP 133/53; PULSE 71; RESP 18; TEMP 37.1; O2SAT 96; BMI 33.8
--- NOTE | 2023-06-27 14:10 | ED.GENADULT ---
HPI - General Adult General Chief complaint: General Medical Stated complaint: head inj Time Seen by Provider: 06/27/23 14:10 Source: patient Mode of arrival: ambulatory Limitations: no limitations History of Present Illness HPI narrative: Patient is a 47-year-old male presenting to the emergency department with complaint of tick bite to neck. States he noted the tick about an hour ago and removed as much as he could at home. States he was outdoors around 24 hours ago, so the tick could have been on for up to a day. Denies any other symptoms. complaint: tick bite Onset (ago): hour(s) Location: neck Associated symptoms: denies other symptoms Treatments prior to arrival: other (removal of tick) Related Data Home Medications Medication Instructions Recorded Confirmed bismuth subsalicylate 525 mg/15 mL 525 mg PO Q30M PRN Diarrhea 07/19/22 07/19/22 oral suspension loperamide 2 mg capsule 2 mg PO Q6H PRN Diarrhea 07/19/22 07/19/22 Allergies Allergy/AdvReac Type Severity Reaction Status Date / Time No Known Allergies Allergy Verified 06/27/23 14:13 Review of Systems Review of Systems: As per HPI. Yes all other systems are reviewed and are negative Constitutional: Constitutional: Reports as per HPI [facility] Social History Social History Household Members: Family Housing: Apartment Alcohol intake: current Alcohol intake frequency: holidays/special occasions only Alcohol type: beer Patient Tobacco Use Status: Never used Tobacco service: No Current occupational status: employed Physical Exam ED Vital Signs: Vital Signs - 24 hr 06/27/23 14:10 Temperature 98.8 F Pulse Rate 71 Respiratory Rate 18 Blood Pressure 133/53 L Pulse Oximetry 96 Oxygen Delivery Method Room Air BMI result Body Mass Index 33.8 Vital signs have been reviewed and appear to be correct. Blood pressure normal. Heart rate normal. Respiratory rate normal. Temperature normal. Oxygen saturation normal. Const General: cooperative, healthy appearing and no acute distress Orientation/consciousness: oriented to person, oriented to place, oriented to time and patient oriented x3 Limitations: no limitations HENMT Head: Yes normocephalic and Yes atraumatic Ears: external ears normal General nose exam: Normal external nose present Face and sinus: Yes face symmetric Mouth: oropharynx normal and moist mucous membranes Throat: Yes uvula midline Eyes Pupils: Equal, round and reactive pupils present Neck Neck: Yes normal visual inspection and Yes supple Neck images: 1. small puncture wound without surrounding erythema or warmth, no drainage, no erythema migrans Resp Effort & Inspection: normal respiratory effort and able to speak in complete sentences Auscultation: clear to auscultation bilaterally Cardio Rate: regular rate Rhythm: regular rhythm Heart sounds: S1 normal heart sound present and S2 normal heart sound present GI Palpation (GI): Soft to palpation and nontender Auscultation: normoactive bowel sounds General: Yes no CVA tenderness Back/Spine/Pelvis Back: no CVA tenderness Skin General skin exam: elasticity normal and turgor normal Neuro General: oriented to person, oriented to place, oriented to time, patient oriented x3, moves all extremities, no focal motor deficits and CN's II-XI intact bilaterally Cranial nerves: Yes Equal, round and reactive pupils present Cognition (Neuro): normal cognition Extrem General: Yes full ROM, Yes no pedal edema and Yes no calf tenderness Psych Mental Status: mental status grossly normal Affect: normal affect Thought process: Normal thought process present Medical Decision Making Medical Decision Making [facility] Narrative: Patient is a 47-year-old male presenting to the emergency department with complaint of tick bite to neck. On exam patient is awake, A+Ox3, VS WNL, afebrile, normal neurological exam without focal deficits, physical exam findings as above. Given reported symptoms and physical exam findings, initial differential includes tick bite, erythema migrans, cellulitis. Patient medicated with one-time prophylactic dose of doxycycline 200mg. Advised of signs and symptoms of Lyme and other tick-borne illnesses which patient should watch out for in the coming weeks. Instructed patient to follow up with PCP or return here if he develops these symptoms. Return precautions discussed. Patient verbalized understanding of and agreement with plan. Differential Diagnosis Differential Diagnoses: The differential diagnosis associated with the presentation includes As per [facility] External Record Review External record reviewed: Inpatient record, Office record and Outpatient record Prescription Management I considered prescription management with: Antibiotic Discharge Plan Discharge Clinical Impression: Tick bite of neck Patient Disposition: Home, Self-Care Instructions: Tick Bite (ED), Lyme Disease (ED) Additional Instructions: You were evaluated in the emergency department today after a tick bite. You were given a one-time dose of an antibiotic in the ED today to prevent infection. If you develop fever, body aches, or joint pain the next 4-6 weeks, please follow up with your primary care provider or return here. Prescriptions: No Action loperamide 2 mg Capsule 2 mg PO Q6H PRN (Reason: Diarrhea) Rx Instructions: max 8mg/day bismuth subsalicylate 525 mg/15 mL Suspension 525 mg PO Q30M PRN (Reason: Diarrhea) Rx Instructions: do not exceed 8 doses in a 24 hour period
[2023-06-27] MEDS: Doxycycline Monohydrate 100 MG CAPSULE 200 MG PO (14:16)
[2023-06-27 14:31] VITALS: BP 133/53; PULSE 71; RESP 18; TEMP 37.1; O2SAT 96
== END 2023-06-27 14:34 | disposition home or self-care (01) ==
PROVIDERS: Emergency Provider Emergency Medicine; PCP Family Medicine
DX: S10.96XA Insect bite of unspecified part of neck, initial encounter (principal); W57.XXXA Bitten or stung by nonvenomous insect and other nonvenomous arthropods, initial encounter; Y93.9 Activity, unspecified; Y92.9 Unspecified place or not applicable; Y99.9 Unspecified external cause status
CPT/HCPCS: 99282; 99283

== ENCOUNTER 2023-11-09 06:24 | Emergency (ER) | payer MEDICAID, OTHER, SELFPAY ==
[2023-11-09 06:28] VITALS: BP 142/56; PULSE 56; RESP 16; TEMP 36.7; O2SAT 93; BMI 33.6
[2023-11-09] MEDS: Fluorescein Sodium STRIP 1 STRIP EYE-LEFT (06:53)
[2023-11-09] MEDS: Tetracaine HCl/PF 0.5% Oph Sol 4 ML DROPS 1 DROP EYE-LEFT (06:53)
--- NOTE | 2023-11-09 06:58 | ED_ITS ---
HPI - Eye Problem General Chief complaint: Eye Problems Stated complaint: Left eye pain Time Seen by Provider: 11/09/23 06:34 Source: patient Mode of arrival: ambulatory Limitations: no limitations History of Present Illness ED Provider: JUSTO BROWER PA-C HPI Narrative: 47-year-old male with no significant past medical history presents to the ED today for evaluation of left eye pain/tearing since 1400 yesterday. Patient reports that 2 days ago he was outside using a metal furniture assembler. He does not recall anything flying into his eye at the time however the following day (24 hours ago) he began to have left eye pain. He's concerned he may have something in the eye. He denies vision changes however endorses photophobia of the left eye. Admits to associated tearing without noted discharge. He does not wear corrective lenses. Denies vision changes, discharge from the eye. Denies trauma/ injury to the eye. Related Data Home Medications ?Medication ?Instructions ?Recorded ?Confirmed bismuth subsalicylate 525 mg/15 mL 525 mg PO Q30M PRN Diarrhea 07/19/22 07/19/22 oral suspension loperamide 2 mg capsule 2 mg PO Q6H PRN Diarrhea 07/19/22 07/19/22 Previous Rx's ?Medication ?Instructions ?Recorded erythromycin 5 mg/gram (0.5 %) eye 1 appl ophthalmic-Left BID #3.5 11/09/23 ointment grams Allergies Allergy/AdvReac Type Severity Reaction Status Date / Time No Known Allergies Allergy Verified 11/09/23 06:30 Review of Systems Review of Systems: Constitutional: No fever, chills, fatigue, night sweats, weight changes ENT/Mouth: No ear pain, hearing loss, nasal congestion, sinus pain, rhinorrhea, sore throat Eyes: No swelling, redness, vision changes, discharge, +left eye pain Cardio: No chest pain, palpitations, ALEXIS, orthopnea, peripheral edema Pulm: No SOB, cough, sputum, wheezing, dyspnea, hemoptysis GI: No nausea, vomiting, hematemesis, abdominal pain, diarrhea, constipation, hematochezia, melena : No irregular bleeding, dysuria, frequency, urgency, hesitancy, hematuria, flank pain, urinary flow changes, urinary incontinence or retention MSK: No back pain, neck pain, joint pain, myalgias Skin: No lesions, rashes Neuro: No weakness, numbness, paresthesias, LOC, dizziness, headache Psych: No anxiety/panic, depression, SI/HI, AH/VH All other systems reviewed and are negative. [facility] Past Medical History Attestation statement: The following information was validated with the patient. Source: old records reviewed and nursing notes reviewed Social History Social History Household Members: Family Housing: Apartment Alcohol intake: current Alcohol intake frequency: does not drink Alcohol type: beer Patient Tobacco Use Status: Never used Tobacco Smoked in Last 30 Days: No Use of substances other than those prescribed or required for medical reasons: No Advance Directives: No Advance Directives Information Provided: Yes Do you have a plan to hurt others: No Plan service: No Current occupational status: employed Physical Exam Vital Signs: Vital Signs: Last Vital Signs Temp 98.1 F 11/09/23 06:28 Pulse 56 11/09/23 06:28 Resp 16 11/09/23 06:28 BP 142/56 H 11/09/23 06:28 Pulse Ox 93 11/09/23 06:28 O2 Del Method Room Air 11/09/23 06:28 BMI result Body Mass Index 33.6 Vital signs stable, afebrile Const: General: cooperative, healthy appearing, comfortable and no acute distress Orientation/consciousness: patient oriented x3 Limitations: no limitations HEENT: Head: Yes normal to inspection, Yes No palpable skull fracture present, Yes normocephalic and Yes atraumatic Eyes: Other: No periorbital swelling. No enophthalmous or exopthalmous. EOMs intact without pain or entrapment. PERRLA. Positive photophobia. No obvious foreign body or abrasion. Noted conjunctival injection and chemosis noted to right eye. No hazy cornea. Visual acuity OD 20/40, OS 20/30 IOP OD 17, IOP OS 18. On tetracaine exam, there are no dendritic lesions present. There is slight reuptake noted to the 4:00 a.m. region of the left cornea, circular shape. Ques tion abrasion versus ulceration. no clear FB present. Removal attempted with needle bevel and tip of cotton swab which did not yield foreign body. Neck: Neck: Yes normal visual inspection, Yes full ROM and Yes no lymphadenopathy Resp: Effort & Inspection: normal respiratory effort and able to speak in complete sentences Auscultation: clear to auscultation bilaterally Cardio: Rate: regular rate Rhythm: regular rhythm Skin: General skin exam: no rashes or lesions noted Neuro: General: patient oriented x3 and gait normal Course Course Course Narrative: 0731 -- patient reports significant improvement in left eye pain after receiving tetracaine eye drops. He is able to completely open his left eye. His physical exam consistent with corneal abrasion. Erythromycin ointment sent to pharmacy for treatment. Informed patient that they will need to follow-up with embosser operator and referral has been provided. Advised to call today to set up an appointment. Patient has remained stable throughout ED visit today. Discussed worrisome signs and symptoms and when to return to the ED. All questions answered at this time. Patient is agreeable with disposition and stable for discharge. Medications Administered Discontinued Medications Generic Name Dose Route Start Last Admin Trade Name Freq PRN Reason Stop Dose Admin Fluorescein Sodium 1 strip 11/09/23 06:45 11/09/23 06:53 Fluorescein Sodium Strip EYE-LEFT 11/09/23 06:46 1 strip ONCE ONE Administration Tetracaine HCl 1 drop 11/09/23 06:45 11/09/23 06:53 Tetracaine Hcl/Pf 0.5% Oph Juliana 4 Ml Drops EYE-LEFT 11/09/23 06:46 1 drop ONCE ONE Administration Medical Decision Making Medical Decision Making [facility] Narrative: 47-year-old male with no significant past medical history presents to the ED today for evaluation of left eye pain/tearing since 1400 yesterday. Patient is slightly hypertensive to 142/56, vitals otherwise WNL. Afebrile. He is nontoxic-appearing and in no acute distress. Lying comfortably on the exam bed. On exam, there is no periorbital swelling. No enophthalmous or exopthalmous. EOMs intact without pain or entrapment. PERRLA. Positive photophobia. No obvious foreign body or abrasion. Noted conjunctival injection and chemosis noted to right eye. No hazy cornea. Visual acuity OD 20/40, OS 20/30. IOP OD 17, IOP OS 18. On tetracaine exam, there are no dendritic lesions present. There is slight reuptake noted to the 4:00 a.m. region of the left cornea, circular shape. Question abrasion versus ulceration. no clear FB present. Removal attempted with needle bevel and tip of cotton swab which did not yield foreign body. Differential diagnosis includes corneal abrasion, corneal ulceration, corneal FB, conjunctivitis. Lower suspicion for iritis, keratitis. Unlikely pre-septal cellulitis, orbital cellulitis, acute angle closure glaucoma. Plan for tetracaine/fluorescein examination, IOP, VA, and disposition. Differential Diagnosis Differential Diagnoses: The differential diagnosis associated with the presentation includes as above. Admission/Observation Not indicated. External Record Review External record reviewed: Inpatient record Prescription Management I considered prescription management with: Antibiotic (erythromycin ointment) Social Determinants Patient?s care significantly limited by Social Determinants of Health including: Other Social Determinant of Health Critical Care Time Critical Care Time Critical Care Time: No Discharge Plan Discharge Clinical Impression: Corneal abrasion Patient Disposition: Home, Self-Care Instructions: Corneal Abrasion (ED), Corneal Ulcer (ED), Photophobia (ED) Additional Instructions: You were evaluated in the ED today for left eye pain. You are noted to have a corneal abrasion to your left cornea. Erythromycin is an ointment that has been sent to your pharmacy for treatment. Please apply this to your eye twice daily. You need to follow-up with an embosser operator. You have been provided with a referral. Please call their office today to make an appointment. Take tylenol and motrin at home for pain control. Return with new or worsening symptoms. In the case of an emergency call 911. Dr. Bradley [phone] Prescriptions: New erythromycin 5 mg/gram (0.5 %) ointment 1 appl ophthalmic-Left BID Qty: 3.5 0RF No Action loperamide 2 mg Capsule 2 mg PO Q6H PRN (Reason: Diarrhea) Rx Instructions: max 8mg/day bismuth subsalicylate 525 mg/15 mL Suspension 525 mg PO Q30M PRN (Reason: Diarrhea) Rx Instructions: do not exceed 8 doses in a 24 hour period Referrals: Raymundo Bradley [Physician] - 2 days Nay Malin DO [Primary Care Provider] - Interventions: ED Discharge Assessment Last Done: 11/09/23 07:34 Discharge Date/Time: 11/09/23 07:37 Print Language: Argentine
--- NOTE | 2023-11-09 07:01 | PC.NURSE ---
report recieved from previous RN, patient states he was cutting a metal pipe last night and feels like some shards of metal flew into his left eye. patient endorsing pain to the eye and states he is unable to open it, denies any blurred vision. isaac lamp, eyedrops and strips placed in room for provider. patient wearing dark glasses stating the light is bothering him, denies any discharge from the eye. resting on stretcher, family at bedside, callbell within reach
[2023-11-09 07:34] VITALS: BP 142/56; PULSE 56; RESP 16; TEMP 36.7; O2SAT 93
== END 2023-11-09 07:37 | disposition home or self-care (01) ==
PROVIDERS: Emergency Provider Emergency Medicine; PCP Family Medicine
DX: S05.02XA Injury of conjunctiva and corneal abrasion without foreign body, left eye, initial encounter (principal); W31.1XXA Contact with metalworking machines, initial encounter; H11.422 Conjunctival edema, left eye; H57.12 Ocular pain, left eye; Y93.89 Activity, other specified; Y92.019 Unspecified place in single-family (private) house as the place of occurrence of the external cause; Y99.9 Unspecified external cause status
CPT/HCPCS: 99283; 99284

== ENCOUNTER 2024-04-04 13:23 | Outpatient (REF) | payer MEDICAID, OTHER, SELFPAY ==
[2024-04-04 16:29] LABS: Hematocrit 31.8 % (42.0-52.0); Hemoglobin 10.3 g/dl (14.0-18.0); Mean Corpuscular HGB Conc 32.4 g/dl (31.0-36.0); Mean Corpuscular Hemoglobin 36.1 pg (27.0-33.0); Mean Platelet Volume 12.5 fL (9.4-12.4); Platelet Count 349 X10*3/uL (160-400); Red Blood Count 2.85 X10*6/uL (4.60-5.80); Red Cell Distribution Width 13.1 % (11.0-16.0); White Blood Count 9.5 X10*3/uL (4.8-10.8)
[2024-04-04 16:33] LABS: Estimated Average Glucose 74 mg/dL; Hemoglobin A1C 60.2478 umol/L; Hemoglobin A1c % 4.2 % (<6.0); Total Hemoglobin (HGBA1C) 2679.4022 umol/L
[2024-04-04 16:44] LABS: Mean Corpuscular Volume 111.6 fL (80.0-98.0); NRBC Pct Auto 3.4 /100WBC (0.0-0.2)
[2024-04-04 17:43] LABS: CT PCR NOT DETECTED (Not Detect.); NG PCR NOT DETECTED (Not Detect.)
[2024-04-04 17:50] LABS: Creatinine Urine 315.65 mg/dL; Microalbum/Creatinine Ratio Ur 70.9 ug/mg cr (<30)
[2024-04-04 18:02] LABS: Albumin Level 4.6 g/dL (3.5-5.0); Anion Gap 11 (12-20); Aspartate Amino Transferase 52 U/L (5-37); Bilirubin Direct 0.7 mg/dL (0.0-0.5); Bilirubin Total 3.7 mg/dL (0.0-1.0); Blood Urea Nitrogen 14 mg/dL (9-16); Calcium 9.4 mg/dL (8.4-10.2); Carbon Dioxide 27 mmol/L (22-29); Chloride 104 mmol/L (96-108); Cholesterol 155 mg/dL (<200); Estimated Glomerular Filt Rate > 60; Glucose Random 288 mg/dL (60-115); HDL Cholesterol 33 mg/dL (>40); LDL Cholesterol Calculated 69 mg/dL (<100); Potassium 4.5 mmol/L (3.3-5.1); Sodium 137 mmol/L (135-145); Total Protein 8.1 g/dL (6.5-8.0); Triglycerides 268 mg/dL (<150)
[2024-04-04 19:09] LABS: Alanine Aminotransferase 79 U/L (0-40); Alkaline Phosphatase 162 U/L (39-117)
[2024-04-04 23:48] LABS: Free T4 (Free Thyroxine) 0.89 ng/dL (0.71-1.85); Vitamin D 25-OH Total 13.9 ng/mL (>30)
[2024-04-07 10:43] LABS: RPR Rapid Plasma Reagin NON-REACTIVE (NON-REACTIVE)
[2024-04-07 14:21] LABS: HBsAGNum1 0.35 S/CO (0.00-0.99); HIV AB/AG Nonreactive (Nonreactive); HIV Num 1 0.05 S/CO (0.00-0.99); Hepatitis B Surface Antigen Negative (Negative); ~Hepatitis B Surface Antibody NONREACTIVE (Nonreactive); ~Hepatitis C Antibody Nonreactive (Nonreactive)
[2024-04-08 07:09] LABS: Fructosamine 432 umol/L (205-285)
== END 2024-04-04 13:24 | disposition home or self-care (01) ==
LOC: HO.HHCL 13:23
PROVIDERS: Visit Provider Family Medicine
DX: E11.9 Type 2 diabetes mellitus without complications (principal)
CPT/HCPCS: 80048; 80061; 80076; 82043; 82306; 82570; 82985; 83036; 84439; 84443; 85027; 86592; 86706; 86803; 87340; 87389; 87491; 87591

== ENCOUNTER 2024-06-13 12:12 | Outpatient (REF) | payer MEDICAID, OTHER, SELFPAY ==
[2024-06-13 13:47] LABS: Alanine Aminotransferase 53 U/L (0-40); Albumin Level 4.2 g/dL (3.5-5.0); Alkaline Phosphatase 116 U/L (39-117); Anion Gap 10 (12-20); Aspartate Amino Transferase 46 U/L (5-37); Bilirubin Direct 0.5 mg/dL (0.0-0.5); Bilirubin Total 2.9 mg/dL (0.0-1.0); Blood Urea Nitrogen 17 mg/dL (9-16); Calcium 8.8 mg/dL (8.4-10.2); Carbon Dioxide 26 mmol/L (22-29); Chloride 109 mmol/L (96-108); Cholesterol 133 mg/dL (<200); Estimated Glomerular Filt Rate > 60; Glucose Random 106 mg/dL (60-115); HDL Cholesterol 31 mg/dL (>40); Iron 247 mcg/dL (45-160); LDL Cholesterol Calculated 76 mg/dL (<100); Percent Iron Saturation 82 % (15-50); Potassium 3.9 mmol/L (3.3-5.1); Sodium 141 mmol/L (135-145); Total Iron Binding Capacity 301 mcg/dL (228-428); Total Protein 7.8 g/dL (6.5-8.0); Triglycerides 131 mg/dL (<150); Unsaturated Iron Binding 54 ug/dL
--- OUTSIDE RECORDS SUMMARY | 2024-06-13 14:18 | XMS_ITS | Encounter Summary ---
Author Organization [employer] Address [address] [facility] [address] [place] [address] Care Team Providers Care Wagon Driller Name Role Phone Nay Malin DO Primary Care Provider [phone] Alka Velazquez PharmD Unavailable [phone] Reason for Visit * Reason Comments Med Refill Encounter Details Date Type Department Care Team ([facility] st Contact Info) Description 07/08/2023 Refill [facility] [address] [place], [place] [phone] Nay Malin DO [address] [place] [address] Social History Tobacco Use Types Packs/Day Years Used Date Smoking Tobacco: Never Passive Smoke Exposure: Never Smokeless Tobacco: Never Alcohol Use Standard Drinks/Week Comments Yes 0 (1 standard drink = 0.6 oz pur e alcohol) Alcohol Answer Date Recorded Frequency of Alcohol Consumption Not on file 01/23/2023 Average Number of Drinks Not on file 023 Frequency of Binge Drinking Not on file 01/11 Score 0 01/23/2023 Depression Answer Date Recorded Patient Health Questionnaire-9 Score 0 01/23/2023 Housing Stability Answer Date Recorded What is your housing situation today? I have ramses chavez 01/26/[address] you li ve. Do you have problems with any of the following? I am not sure 01/26/2023 Food Insecurity Answer Date Recorded Within the past 12 months, y ou worried that your food would run out before you got money to buy more: Never True 01/26/2023 Within the past 12 months,th e food you bought just didn't last and you didn't have enough money to get more: Never True Transportation Answer Date Recorded In the past 12 months, has l ack of transportation kept you from medical appts, meetings, work or from getting things needed for daily living? No 01/26/2023 Utilities Answer Date Recorded In the past 12 months, has t he electric, gas, oil or water company threatened to shut off services in your home? No 01/26/2023 Depression Answer Date Recorded Patient Health Questionnaire-2 Score 0 01/23/2023 Sex and Gender Information Value Date Recorded Sex Assigned at Male 02/10/2022 10:21 AM EDT Legal Sex Male 10:21 AM EDT Gender Identity Male 12/24/2022 9:46 AM EDT Sexual Orientation Straight 01/16/2023 2: 07 PM EDT documented as of this encounter Plan of Treatment Upcoming Encounters Date Type Department Care Team (Late st Contact Info) Description 06/15/2024 9:30 AM EST Medication Management [facility] [address] [place] [address] Alka Velazquez PharmD [address] [place] [address] 07/19/2024 9:45 AM EDT Office Visit [facility] [address] [place] [address] Tarka Brittny, OD [address] [place] [address] documented as of this encounter Visit Diagnoses Not on filedocumented in this encounter Additional Health Concerns Assessment Noted Time PHQ-9 Depression Total Score: 0 01/24/20 9:35 AM EDT documented as of this encounter Care Teams Wagon Driller Relationship Specialty Start Date End Date Nay Malin DO [address] [place] [address] PCP - General Family Medicine 05/23/22 Alka Velazquez, PharmD [address] [place] [phone] Pharmacist Internal Medicine 05/12/24 documented as of this encounter
--- OUTSIDE RECORDS SUMMARY | 2024-06-13 14:18 | XMS_ITS | Encounter Summary ---
Author Organization [employer] Address [address] [facility] [address] [place] [address] Care Team Providers Care Band Cutting Machine Operator Name Role Phone Nay Malin DO Primary Care Provider [phone] Alka Velazquez PharmD Unavailable [phone] Encounter Details Date Type Department Care Team (Late st Contact Info) Description 06/13/2024 Orders Only [facility] [address] [place], [place] [phone] Nay Malin DO [address] [place] [address] Social History Tobacco Use Types Packs/Day Years [...] housing situation today? I have ramses chavez 08/26/[address] you li ve. Do you have problems with any of the following? None of the above 08/26/2023 Food Insecurity Answer Date Recorded Within the [...] Description 06/15/2024 9:30 AM EST Medication Management [facility] [address] [place] [address] Alka Velazquez, PharmD [address] [place] [address] 07/19/2024 9:45 AM EDT Office Visit [facility] [address] [place] [address] Brittny Benjamin, OD [address] [place] [address] documented as of this encounter Procedures Procedure Name Priority Date/Time Associated Diagnosis Comments IRON AND TOTAL IRON BINDING CAPACITY Routine 06/13/2024 12:14 PM EST HEPATIC FUNCTION PANEL Routine 06/13/2024 12:14 PM EST LIPID PANEL, STANDARD Routine 06/13/2024 12:14 PM EST BASIC METABOLIC PANEL Routine 06/13/2024 12:14 PM EST documented in this encounter Results * (ABNORMAL) Lipid Panel, Standard (06/13/2024 12:14 PM EST) Triglycerides 131 <150 mg/dL [facility] Comment:Desirable Triglyceri de: less than 150 mg/dLBorderline High Triglyceride 150-199 mg/dLHigh Triglyceride: 200-499 mg/dLVery High Triglyceride: greater than or equal to 5OO mg/dL Cholesterol 133 <200 mg/dL [facility] Comment:Desirable Cholestero l: less than 200 mg/dLBorderline High Cholesterol: 200-239 mg/dLHigh Cholesterol: greater than 239 mg/dL LDL Cholesterol Calculated 76 <100 mg/dL [facility] Comment:Desirable LDL: less than 100 mg/dLNear Optimal/Above Optimal LDL: 110- 129 mg/dLBorderline High LDL: 130-159 mg/dLHigh LDL: 160-189 mg/dLVery High LDL: greater than or equal to 190 mg/dL HDL Cholesterol 31(L) >40 mg/dL [facility] Comment:Desirable HDL: great er than 40 mg/dL Note: This HDL assay may give artificially low results in patients with liver disease. 06/13/2024 12:1 4 PM EST 06/13/2024 1:01 PM EST Nay Malin Celles LAB BLOOD ORDERABLES Final R esult Performing Organization Address City/[facility] Co de Phone Number [facility] [address] [place] [phone] * (ABNORMAL) Iron And Total Iron Binding Capacity (06/13/2024 12:14 PM EST) Iron 247(H) 45 - 160 mcg/dL [facility] Total Iron Binding Capacity 301 228 - 428 mcg/dL [facility] Percent Iron Saturation 82(H) 15 - 50 % [facility] Unsaturated Iron Binding 54 ug/dL [facility] 06/13/2024 12:1 4 PM EST 06/13/2024 1:01 PM EST Nay Malin DO LAB BLOOD ORDERABLES Final R esult Performing Organization Address City/[facility]/ZIP Co de Phone Number [facility] [address] [place] [phone] * (ABNORMAL) Basic Metabolic Panel (06/13/2024 12:14 PM EST) Sodium 141 135 - 145 mmol/L [facility] Potassium 3.9 3.3 - 5.1 mmol/L [facility] Chloride 109(H) 96 - 108 mmol/L [facility] Carbon Dioxide 26 22 - 29 mmol/L [facility] Anion Gap 10(L) 12 - 20 [facility] Urea Nitrogen (BUN) 17(H) 9 - 16 mg/dL [facility] Creatinine, Serum 0.67 0.5 - 1.4 mg/dL [facility] Estimated Glomerular Filt Rate >60 [facility] Comment:Chronic Kidney Disea se: Estimated GFR < 60 mL/min/1.23o3Mkdasw Kidney Disease: Estimated GFR < 15 mL/min/1.73m2 Glucose 106 60 - 115 mg/dL [facility] Calcium 8.8 8.4 - 10.2 mg/dL [facility] 06/13/2024 12:1 4 PM EST 06/13/2024 1:01 PM EST us Nay Malin DO LAB BLOOD ORDERABLES Final R esult Performing Organization Address City/[facility]/ZIP Co de Phone Number [facility] [address] [place] [phone] * (ABNORMAL) Hepatic Function Panel (06/13/2024 12:14 PM EST) Bilirubin, Total 2.9(H) 0.0 - 1.0 mg/dL [facility] Comment:Slight Icterus. Bilirubin, Direct 0.5 0.0 - 0.5 mg/dL [facility] Comment:Slight Icterus. Aspartate Amino Transferase 46(H) 5 - 37 U/L [facility] Alanine Aminotransferase 53(H) 0 - 40 U/L [facility] Total Protein 7.8 6.5 - 8.0 g/dL [facility] Albumin Level 4.2 3.5 - 5.0 g/dL [facility] Alkaline Phosphatase 116 39 - 117 U/L [facility] 06/13/2024 12:1 4 PM EST 06/13/2024 1:01 PM EST us Nay Malin DO LAB BLOOD ORDERABLES Final R esult [facility] [address] [place] [phone] documented in this encounter Visit Diagnoses Not on filedocumented in this encounter Additional Health Concerns Assessment Noted Time PHQ-9 Depression Total Score: 0 01/24/20 23 9:35 AM EDT documented as of this encounter Care Teams Band Cutting Machine Operator Relationship Specialty Start Date End Date Nay Malin DO [address] [place] [address] PCP - General Family Medicine 05/23/22 Alka Velazquez PharmD [address] [place] [address] Pharmacist Internal Medicine 05/12/24 documented as of this encounter
--- OUTSIDE RECORDS SUMMARY | 2024-06-13 14:18 | XMS_ITS | Clinical Summary ---
Author Organization [facility] Address [address] [place] [address] Care Team Providers Care Glue Drier Operator Name Role Phone Nay Malin Primary Care Provider [phone] Allergies No known active allergies Medications acetaminophen (TYLENOL) 325 mg capsule Take 325 mg by mouth every 6 hours as needed for pain. Pt. States 2 tablets as needed 01/30/2023 Active diclofenac (VOLTAREN) 1% gel 01/23/2023 Active folic acid (FOLVITE) 1 mg tablet Take 1 tablet (1 mg total) by mouth once a day. 30 tablet 2 07/01/2023 Active Active Problems Problem Noted Date Diagnosed Date Regular astigmatism of left eye 09/14/2018 Presbyopia of both eyes 09/14/2018 Low back pain 06/30/2018 Iron overload 02/16/2017 Assessment & Plan (07/28/2018 3:56 PM EDT): Bernardino is a 42-year-old gentleman with nonimmune hemolytic anemia and iron overall who is here for follow-up. He has been doing clinically quite well. 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 He is currently taking Jadenu 900 mg a day (180 x 5). He told me that he is running out of 100 mg tablets so I recommended him to take 3 pills of 360 mg daily that would make total 1080 mg a day. I showed and reviewed iron level with him in detail. His ferritin has been improving nicely however the iron saturation is still very high. I would like to see iron saturation below 60%. Patient also never had MRI liver iron quantification so I ordered one for him. He will he had a cardiac MRI that showed no myocardial iron deposition but the liver parenchyma was partially visualized with iron deposition. I also recommended him to get screening eye exam and also a hearing test as baseline while taking Jadenu. He would get MRI here at [facility]. I think he can get ear and ear exams in [facility]. I told him to get CMP monthly instead of weekly since his creatinine has been running in good range. I recommend him to use back brace and losing some weight for his chronic low back pain. All questions were answered to patient's satisfaction. Assessment & Plan (03/25/2018 11:32 AM EST): He has been taking daily 720 mg a day with no side effects. His creatinine has been in normal range. Ferritin level improved from 2,975 in November to 1,870. I asked him to continue on the same dose of jadenu for now. I would increase the dose to 1080 mg if his ferritin is still above 1000 in the next 3 months. Assessment & Plan (08/18/2017 12:23 PM EDT): Prescribed deferasirox 540 mg daily for him back in February 2017 but the patient did not receive it. I sent another prescription to our [facility] specialty pharmacy today. The patient will let me know when he receives those pills. I asked him to get BMP weekly for 4 times to make sure that his creatinine is okay. I plan to repeat his ferritin monthly. He will get cardiac and liver MRI in the future. Assessment & Plan (02/16/2017 3:01 PM EST): The ferritin level is highly elevated. The ferritin level was elevated at 1650. Iron saturation is also very high 90%. He also has mild transaminitis as well. I plan to start Jadenu 7mg/kg/day to keep his ferritin below 300 ng/ml. He would need blood work for creatine weekly for first 4 weeks then we will follow it monthly. The patient lives quite far from [facility]. I will ask him to get blood work from his PCP office or [facility]. Hemolytic anemia 06/17/2016 Assessment & Plan (10/21/2018 10:38 AM EDT): Bernardino is a 42-year-old gentleman with nonimmune hemolytic anemia and iron overload. Duodenal was increased from 900mg to 1080 mg since July 2018. Has been tolerating new dose very well. I went over all testing results to him in detail including audiogram, exam and liver MRI. They all quite unremarkable except very mild deposition of iron in the liver. His ferritin level has been improving significantly from the highest number almost 3000 down to 1300 in July. The number from today is still pending. I plan to keep his ferritin number below 500 range. We will adjust his Jadenu dose slowly if his ferritin level is not improving. His maximal dose would be 2400 mg a day per his body weight. He will come back in 3 months for follow-up with anderson Newton, nurse practitioner. All questions were answered to patient's satisfaction. Assessment & Plan (03/25/2018 11:32 AM EST): Bernardino is a 42-year-old gentleman with non-immune hemolytic anemia and iron overload. He has been doing clinically pretty well. His hemolytic anemia has been stable. CBC today showed hemoglobin 9.4 which is stable for his baseline. 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 CMP still showed elevation of total bilirubin from hemolysis. I looked up the chart and I cannot locate hemoglobin electrophoresis so I asked our lab to run it as add on today. If it can't be done then I plan to be on next clinic visit. He will continue to take folic acid once a day. Assessment & Plan (08/18/2017 12:15 PM EDT): Clinically the patient has been doing quite well. He still has side of hemolytic anemia. His sclera remains icteric. His CBC today showed hemoglobin 9.6 with high MCV at 112.8. Interestingly LDH is low at 120. Patient will continue taking folic acid daily. We recommended the patient to avoid red meat products that containing high iron content. He also should avoid taking any multivitamin with iron component. I asked the patient to get a record from [place] when he was treated for hemolytic anemia with splenectomy in the past however the patient told us that his doctor over there did not have any record about his treatment in the past anymore. The cause of his nonimmune hemolytic anemia is still unidentified at this time. His MCHC is not elevated. His smear did not show any spherocytosis blood picture. He might have some red blood cell enzyme deficiency. He informed him that we will order a few more tests in the future to get the definite diagnosis. Assessment & Plan (02/16/2017 9:22 AM EST): The patient has been doing clinically well. He denied having any symptoms related to his known autoimmune hemolytic anemia. We prescribed folic acid for him. We also recommended the patient to call our office when he is running out of the refill. I also encouraged patient to stay up-to-date with his immunizations such as influenza and also pneumococcal vaccine. The patient will get CBC prior to his departure to clinic today. All questions were answered to patient and his satisfaction. 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/2015 Family History Medical History Relation Name Comments Diabetes Brother 1 Other Brother 1 Family History of diabetes mellitus Other Brother 2 Family History of thyroid disease Diabetes Mother Other Mother Family History of diabetes mellitus Diabetes Sister 1 Other Sister 1 Family History of diabetes mellitus Diabetes Sister 2 Other Sister 2 Family history of Aneurysm Relation Name Status Comments Brother 1 Brother 2 Mother Sister 1 Sister 2 Social History Tobacco Use Types Packs/Day Years Used Date Smoking Tobacco: Never Smokeless Tobacco: Never Tobacco Cessation:Counseling Given: Not Answered Comments:: Alcohol Use Standard Drinks/Week Comments Yes 0 (1 standard drink = 0.6 oz pur e alcohol) Sex and Gender Information Value Date Recorded Sex Assigned at Male 04/01/2023 10:57 AM EST Legal Sex Male 7:10 PM EDT Gender Identity Male 08/18/2017 10:27 AM EDT Sexual Orientation Straight 04/01/2023 10 :57 AM EST 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 Not on file Not on file Not on file Last Filed Vital Signs Vital Sign Reading Time Taken Comments Blood Pressure 121/75 04/08/2023 10:58 AM EST Pulse 62 04/08/2023 10:58 AM EST Temperature 36.5 ??C (97.7 ??F) 04/08/2023 10:[address] Respiratory Rate 16 04/08/2023 10:58 AM EST Oxygen Saturation 94% 04/08/2023 10:58 AM EST Inhaled Oxygen Concentration - - Weight 95.1 kg (209 lb 9.6 oz) 04/08/2023 10:58 AM EST Height 170.2 cm (5' 7.01 ) 10/21/2018 9:49 AM ED T Body Mass Index 32.82 10/21/2018 9:49 AM EDT Plan of Treatment Health Maintenance Due Date Last Done Comments Cologuard 1973 Colonoscopy 1973 HIV Screening 1975 Sigmoidoscopy 1973 Hepatitis B Vaccines (3 of 3 - 19+ 3-dose series) 06/04/2016 02/04/2016, 12/03/2015 Zoster Vaccines (1 of 2) 12/02/2023 COVID-19 Vaccine ( - season) 2023 01/23/2023, 09/10/2020, 08/12/2020 Influenza Vaccine (#1) 2023 , 01/07/2016, 01/31/2013 Colon Cancer Screening 01/24/2024 FOBT / Fit Test 01/24/2024 01/23/2023 Alcohol/Substance Use Screening 04/13/2024 Depression Screening and Follow-Up 04/13/2024 Social Drivers of Health [place] ual Screening 04/13/2024 DTaP,Tdap,and Td Vaccines (2 - Td or Tdap) 12/02/2025 12/03/2015 RSV Vaccine (60+ years old a nd patients) (1 - 1-dose 75+ series) 2048 Hepatitis C Screening Completed 01/23/2023 Pneumococcal Vaccine: 50+ Years Completed 3 Care Teams Glue Drier Operator Relationship Specialty Start Date End Date Nay Malin [address] [place] [id number] PCP - General Family Medicine 03/02/23
--- OUTSIDE RECORDS SUMMARY | 2024-06-13 14:18 | XMS_ITS | Referral Summary ---
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 He is currently taking [...] Jadenu. He would get MRI here at [facility]. I think he can get ear and ear exams in [facility]. I told him to get CMP [...] it. I sent another prescription to our [facility] specialty pharmacy today. The patient will let [...] monthly. The patient lives quite far from [facility]. I will ask him to get [...] morphology is compatible with post splenectomy with Negrete-[place] body and anisocytosis. CMP still showed elevation [...] the patient to get a record from [place] when he was treated for hemolytic anemia [...] 12/25/2015 Tonsillitis 12/25/2015 Tympanic membrane perforation 12/25/2015 Social History Tobacco Use Types Packs/Day Years [...] 10/21/2018 9:49 AM EDT Plan of Treatment Not on file Care Teams Delivery Nurse Relationship Specialty Start Date End Date Nay Malin [address] [place] [id number] PCP - General Family Medicine 03/02/23
--- OUTSIDE RECORDS SUMMARY | 2024-06-13 14:18 | XMS_ITS | Clinical Summary ---
Author Organization [employer] Address [address] [place] [address] [address] [place] [address] Care Team Providers Care Ceramic Saw Tender Name Role Phone AmandaNay kent Primary Care Provider [phone] Alka Velazquez PharmD Unavailable [phone] Allergies No known active allergies Medications Diclofenac Sodium 1 % gel Apply 2 g topically if needed in the morning, at noon, in the evening, and at bedtime (pain). 150 g 3 3 Active baclofen (Lioresal) 10 MG tablet Take 1 tablet (10 mg) by mouth if needed in the morning, at noon, and at bedtime for muscle spasms. 60 tablet 1 3 Active Blood Glucose Monitoring Suppl (FreeStyle Monclova Lite) w/Device kitIndications:H yperglycemia, unspecified Use to test blood sugar bid dx dm 1 kit 4 Active FreeStyle lancetsIndicatio ns:Hyperglycemia , unspecified 1 each by Other route Once per day. Use bid, dx type 2 diabetes 60 each 11 4 Active glucose blood (FREESTYLE LITE) test stripIndications :Hyperglycemia, unspecified Use bid. Dx diabetes 60 each 11 4 Active insulin degludec (Tresiba FlexTouch) 100 UNIT/ML injection Inject 10 Units under the skin at bedtime. 3 mL 3 4 04/04/20 25 Active atorvastatin (Lipitor) 10 MG tablet Take 1 tablet (10 mg) by mouth Once per day. 90 tablet 3 4 04/04/20 25 Active aspirin 81 MG chewable tablet Chew 1 tablet (81 mg) Once per day. 90 tablet 3 4 04/04/20 25 Active Continuous Glucose Operations Research Manager (FreeStyle Frederick 2 [place]) device Scan sensor every 8 hours 1 each 4 Active Continuous Glucose Sensor (FreeStyle Frederick 2 Sensor) misc Apply 1 sensor every 14 days 2 each 11 4 Active glucose blood (FreeStyle Precision Juwan Test) test strip Use to test blood sugar 3 times daily 100 each 12 4 04/04/20 25 Active clotrimazole (Lotrimin) 1 % cream Apply topically 2 times daily. 60 g 2 4 Active ergocalciferol (Vitamin D2) 1.25 MG (41762 UT) capsule Take 1 capsule (1.25 mg) by mouth 1 (one) time per week. 4 capsule 6 5 Active acetaminophen (Tylenol) 500 MG tablet Take 1 tablet (500 mg) by mouth every 6 (six) hours if needed for mild pain for up to 20 doses. 20 tablet 5 Active ibuprofen 600 MG tablet Take 1 tablet (600 mg) by mouth every 6 (six) hours if needed for mild pain for up to 20 doses. 20 tablet 5 Active insulin pen needle (Pentips Generic Pen [place]) 32G x 4 mm mis Use 1 daily for insulin injection, as directed. 4 Active Blood Pressure kit Use to check BP once daily as directed 1 kit 5 Active lisinopril 5 MG tablet Take 1 tablet (5 mg) by mouth Once per day. 90 tablet 1 5 Active Active Problems Problem Noted Date Diagnosed Date Periodontal disease 04/26/2024 Dental calculus 04/26/2024 Type 2 diabetes mellitus 04/04/2024 Hyperglycemia, unspecified 03/24/2024 Assessment & Plan (03/24/2024 3:59 PM EST): BGL >300 likely due to infection. A1C 4.7%. -prescribed BG monitor and test strips and encouraged to monitor at home. -encouraged follow-up with PCP in 3 months to repeat. Chronic pain of both knees 10/16/2023 Status post tympanoplasty 01/22/2023 Presbyopia of both eyes 09/14/2018 01/23/20 23 Status post splenectomy 12/15/2017 01/23/20 23 Hyperlipidemia 12/15/2017 01/22/2023 Chronic gastroesophageal reflux disease 12/16/19 18 01/22/2023 Iron overload 02/16/2017 01/22/2023 Overview (01/22/2023): Last Assessment & Plan: Cathy is a 42-year-old gentleman with nonimmune hemolytic anemia and iron overall who is here for follow-up. He has been doing clinically quite well. 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 He is currently taking [...] Jadenu. He would get MRI here at [facility]. I think he can get ear and ear exams in [facility]. I told him to get CMP monthly instead of weekly since his creatinine has been running in good range. I recommend him to use back brace and losing some weight for his chronic low back pain. All questions were answered to patient's satisfaction. 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 History of nephrolithiasis 03/03/201601/22 Resolved Problems Problem Noted Date Diagnosed Date Resolved Date Urinary frequency 03/24/2024 04/04/2024 Assessment & Plan (03/24/2024 3:54 PM EST): Likely due to suspected candidiasis of penis. Less likely new onset diabetes, A1C 4.7%, although BGL >300. -prescribed clotrimazole cream. -encouraged follow-up with PCP to further r/o new onset diabetes. -recommended return if symptoms persist or worsen. Genital pruritus 03/24/2024 04/04/2024 Candidiasis of penis 03/24/2024 024 Assessment & Plan (03/24/2024 3:51 PM EST): Itching and irritation with urination. -prescribed clotrimazole cream 03/24/24 Regular astigmatism of left eye 09/14/2018 01/22/2023 Low back pain 06/30/2018 01/22/2023 01/22/2023 Nocturnal dyspnea 12/15/2017 01/22/2023 01/22/2023 Elevated LFTs 12/15/2017 01/22/2023 01/22/2023 Disorder of middle ear and mastoid 12/15/2017202201/22/2023 Alcohol dependence, episodic 12/15/2017 01/22/2023 01/23/2023 Tympanic membrane perforation 12/25/2015 01/22/2023 01/22/2023 Tonsillitis 12/25/2015 01/22/2023 01/22/2023 Conductive hearing loss 12/25/2015 01/22/202301/11/2023 Encounters Date Type Department Care Team Description 06/13/2024 Orders Only [facility] [address], [place] [address] Nay Malin DO 05/13/2024 Telephone [facility] AD[facility] DENT[facility] [address], [place] [address] Arsalan Fair DDS woke up sick 05/11/2024 8:00 AM EST Office Visit [facility] [address], [place] [address] Saige Fowler 05/06/2024 2:30 PM EST Office Visit [facility] [address], [place] [address] Saige Fowler 05/04/2024 9:30 AM EST Clinical Support [facility] [address], [place] [address] Latosha Bartlett, POWER 05/04/2024 Travel 04/26/2024 8:00 AM EST Office Visit [facility] [address], [place] [address] Arsalan Fair DDS Periodontal disease (Primary Dx); Dental calculus 04/21/2024 Refill [facility] [address], [place] [address] Latosha Bartlett, POWER 04/07/2024 Telephone [facility] [address], [place] [address] Latosha Bartlett, RN CGM PA 04/04/2024 12:00 PM EST Office Visit [facility] [address], [place] [address] Nay Malin DO New onset type 2 diabetes mellitus (CMS/HCC) (Primary Dx); Balanitis; Encounter for immunization 04/04/2024 Travel 03/25/2024 2:30 PM EST Office Visit [facility] [address], [place] [address] Emi Vitale 03/24/2024 3:40 PM EST Office Visit [facility] [address], [place] [address] Nathalie Stevens MD Urinary frequency (Primary Dx); Hyperglycemia, unspecified; Candidiasis of penis 03/24/2024 Telephone [facility] [address] [place] [address] Nay Malin DO Nurse Triage 03/21/2024 1:00 PM EST Office Visit [facility] [address] [place] [address] Emi Vitale from Last 3 Months Immunizations Name Administration Dates Next Due Hep B, adult 02/04/2016,12/03/2015 HepB-CpG 05/12/2024 Influenza injectable quadriv alent IIV4 with preservative 01/07/2016 Influenza injectable quadrivalent preservative f ree 01/23/2023 Influenza, Split (incl. purified surface antigen ) 01/31/2013 Influenza, seasonal, injectable, preservative fr ee 04/04/2024 Meningococcal B, Recombinant 07/08/2023,05/13/19 24 Meningococcal Polysaccharide A,C,Y,W-135 TT Conj ugate 07/08/2023,05/13/2023 Pfizer Covid-19 Vaccine 12+ 04/04/2024, Pneumococcal Conjugate PCV 20 01/23/2023 Tdap 12/03/2015 Social History Tobacco Use Types Packs/Day Years Used Date Smoking Tobacco: Never Passive Smoke Exposure: Never Smokeless Tobacco: Never Tobacco Cessation:Counseling Given: Not Answered Alcohol Use Standard Drinks/Week Comments Yes 0 [...] Orientation Straight 01/16/2023 2: 07 PM EDT Last Filed Vital Signs Vital Sign Reading Time Taken Comments Blood Pressure 128/64 05/12/2024 10:00 AM EST Pulse 61 04/04/2024 12:04 PM EST Temperature 36.2 ??C (97.2 ??F) 04/04/2024 1 2:04 PM EST Respiratory Rate 17 04/04/2024 12:0 4 PM EST Oxygen Saturation 95% 03/24/2024 3:09 PM EST Inhaled Oxygen Concentration - - Weight 96.1 kg (211 lb 12.8 oz) 024 12:04 PM EST Height 167.6 cm (5' 6 ) 04/04/2024 12:0 4 PM EST Body Mass Index 34.19 04/04/2024 12:04 PM EST Plan of Treatment Upcoming Encounters Date Type Department Care Team (Late st Contact Info) Description 06/15/2024 9:30 AM EST Medication Management [facility] [address] [place] [address] Alka Velazquez, PharmD [address] [place] [address] 07/19/2024 9:45 AM EDT Office Visit [facility] [address] [place] [address] Brittny Benjamin, OD [address] [place] [address] Health Maintenance Due Date Last Done Comments CT Colonography 1973 Colonoscopy 1973 Colorectal Cancer Screening 1973 FIT DNA/Cologuard 1973 FIT 1973 FOBT 1973 Sigmoidoscopy 1973 HIB Vaccines (1 of 1 - Risk 1-dose series) 03/03/1975 Diabetes: Foot Exam 12/02/1983 Eye Exam 12/02/1983 Alcohol/Substance Use Screening 1985 Family Planning (PISQ) 1988 Dental Prophylaxis 09/28/2019 03/28/2019, 0 09/27/2018, 07/07/2017, Additional history exists Meningococcal B Vaccine (3 of 5 - Increased Risk Trumenba 3-dose series) 11/11/2023 07/08/2023, 05/13/2023 Zoster Vaccines (1 of 2) 12/02/2023 Depression Screening 01/24/2024 01/23/2023, 01/24/20 Diabetes: Hemoglobin A1C 07/03/2024 024, 04/04/2024, 03/24/2024 SDOH Screening 08/25/2024 08/26/2023 Dental Oral Exam 09/06/2024 03/08/2024, , 09/27/2018, Additional history exists Dental X-Ray: Bitewings 03/26/2025 03/25/20 24, 03/08/2024, 09/27/2018, Additional history exists Diabetes: Urine Protein Screening 04/04/2025 04/04/2024 Lipid Panel 04/04/2025 06/13/2024, 03/14, 01/23/2023 Tobacco Screening 05/11/2025 05/11/2024 DTaP/Tdap/Td Vaccines (2 - Td or Tdap) 12/02/2025 12/03/2015 Dental X-Ray: Full Mouth 03/09/2027 03/08/2024, 12/13 Meningococcal Vaccine (3 - Risk 2-dose series) 07/07/2028 07/08/2023, 05/13/2023 RSV Patients and Patients Aged 60 years or older (1 - 1-dose 75+ series) 2048 Pneumococcal Vaccine: 50+ Years Completed 01/23/2023 COVID-19 Vaccine Completed 04/04/2024, , 09/10/2020, Additional history exists HIV Screening Completed 04/04/2024, 01/23/2023 Hepatitis C Screening Completed 04/04/2024, 023 Influenza Vaccine Completed 04/04/2024, , 01/07/2016, Additional history exists Hepatitis B Vaccines Completed 05/12/2024, 02/04/2016, 12/03/2015 HPV Vaccines Aged Out No longer eligi ble based on patient's age to complete this topic Hepatitis A Vaccines Aged Out No long er eligible based on patient's age to complete this topic IPV Vaccines Aged Out No longer eligi ble based on patient's age to complete this topic RSV under 20 months Aged Out No longe r eligible based on patient's age to complete this topic Rotavirus Vaccines Aged Out No longer eligible based on patient's age to complete this topic Procedures Procedure Name Priority Date/Time Associated Diagnosis Comments LIPID PANEL, STANDARD Routine 06/13/2024 12:14 PM EST IRON AND TOTAL IRON BINDING CAPACITY Routine 06/13/2024 12:14 PM EST BASIC METABOLIC PANEL Routine 06/13/2024 12:14 PM EST HEPATIC FUNCTION PANEL Routine 12:14 PM EST CASE PRESENTATION, DETAILED AND EXTENSIVE TREATMENT PLANNING Routine 05/11/2024 8:00 AM EST 32 O RESIN-BASED COMPOSITE - 1 SURF, POSTERIOR Routine 05/11/2024 8:00 AM EST 31 MO RESIN-BASED COMPOSITE - 2 SURF, POSTERIOR Routine 05/11/2024 8:00 AM EST CASE PRESENTATION, DETAILED AND EXTENSIVE TREATMENT PLANNING Routine 05/06/2024 2:30 PM EST LL PERIODONTAL SCALING AND ROOT PLANING - 4 OR MORE TEETH PER QUADRANT Routine 05/06/2024 2:30 PM EST UL PERIODONTAL SCALING AND ROOT PLANING - 4 OR MORE TEETH PER QUADRANT Routine 05/06/2024 2:30 PM EST CASE PRESENTATION, DETAILED AND EXTENSIVE TREATMENT PLANNING Routine 04/26/2024 8:00 AM EST LR PERIODONTAL SCALING AND ROOT PLANING - 4 OR MORE TEETH PER QUADRANT Routine 04/26/2024 8:00 AM EST UR PERIODONTAL SCALING AND ROOT PLANING - 4 OR MORE TEETH PER QUADRANT Routine 04/26/2024 8:00 AM EST FRUCTOSAMINE Routine 04/04/2024 1:25 PM EST New onset type 2 diabetes mellitus (CMS/HCC) HEPATITIS B SURFACE ANTIBODY, QUALITATIVE Routine 04/04/2024 1:25 PM EST New onset type 2 diabetes mellitus (CMS/HCC) RPR (MONITOR) W/REFL TITER Routine 04/04/2024 1:25 PM EST New onset type 2 diabetes mellitus (CMS/HCC) HEPATITIS C AB W/REFL TO HCV RNA, QN, PCR Routine 04/04/2024 1:25 PM EST New onset type 2 diabetes mellitus (CMS/HCC) HIV 1/2 ANTIGEN/ANTIBODY, FOURTH GENERATION W/RFL Routine 04/04/2024 1:25 PM EST New onset type 2 diabetes mellitus (CMS/HCC) HEPATITIS B SURFACE ANTIGEN, EIA Routine 04/04/2024 1:25 PM EST New onset type 2 diabetes mellitus (CMS/HCC) ALBUMIN, RANDOM URINE W/CREATININE Routine 04/04/2024 1:25 PM EST New onset type 2 diabetes mellitus (CMS/HCC) CBC Routine 04/04/2024 1:25 PM EST New onset type 2 diabetes mellitus (CMS/HCC) BASIC METABOLIC PANEL Routine 04/04/2024 1:25 PM EST New onset type 2 diabetes mellitus (CMS/HCC) HEMOGLOBIN A1C Routine 04/04/2024 1:25 PM EST New onset type 2 diabetes mellitus (CMS/HCC) HEPATIC FUNCTION PANEL Routine 1:25 PM EST New onset type 2 diabetes mellitus (CMS/HCC) TSH Routine 04/04/2024 1:25 PM EST New onset type 2 diabetes mellitus (CMS/HCC) LIPID PANEL, STANDARD Routine 04/04/2024 1:25 PM EST New onset type 2 diabetes mellitus (CMS/HCC) VITAMIN D,25-OH,TOTAL,IA Routine 04/04/2024 1:25 PM EST New onset type 2 diabetes mellitus (CMS/HCC) T4, FREE Routine 04/04/2024 1:25 PM EST New onset type 2 diabetes mellitus (CMS/HCC) CHLAMYDIA/N. GONORRHOEAE RNA, TMA, UROGENITAL Routine 04/04/2024 1:25 PM EST New onset type 2 diabetes mellitus (CMS/HCC) POCT GLYCATED HEMOGLOBIN, TOTAL Routine 04/04/2024 12:22 PM EST New onset type 2 diabetes mellitus (CMS/HCC) POCT GLUCOSE Routine 04/04/2024 12:05 PM EST New onset type 2 diabetes mellitus (CMS/HCC) BITEWING - SINGLE RADIOGRAPHIC IMAGE Routine 03/25/2024 2:30 PM EST CASE PRESENTATION, DETAILED AND EXTENSIVE TREATMENT PLANNING Routine 03/25/2024 2:30 PM EST WAX TRY IN Routine 03/25/2024 2:30 PM EST 18 CROWN - PORCELAIN/CERAMIC Routine 03/25/2024 2:30 PM EST POCT GLYCATED HEMOGLOBIN, TOTAL Routine 03/24/2024 3:42 PM EST Urinary frequency POCT GLUCOSE Routine 03/24/2024 3:42 PM EST Urinary frequency 18 CROWN PREP Routine 03/21/2024 1:00 PM EST INTRAORAL - COMPLETE SERIES OF RADIOGRAPHIC IMAGES Routine 03/08/2024 8:00 AM EST COMPREHENSIVE ORAL EVALUATION - NEW OR ESTABLISHED PATIENT Routine 03/08/2024 8:00 AM EST PROPHYLAXIS - ADULT Routine 03/28/2019 1 2:00 AM EST from Last 3 Months or Most Recently Relevant to Health Maintenance Results * (ABNORMAL) Iron And Total Iron Binding Capacity (06/13/2024 12:14 PM EST) Iron 247(H) 45 - 160 mcg/dL [facility] Total Iron Binding Capacity 301 228 - 428 mcg/dL [facility] Percent Iron Saturation 82(H) 15 - 50 % [facility] Unsaturated Iron Binding 54 ug/dL [facility] 06/13/2024 12:1 4 PM EST 06/13/2024 1:01 PM EST Nay Malin DO LAB BLOOD ORDERABLES Final R esult Performing Organization Address [facility] Co de Phone Number [facility] [address] [place] [phone] * (ABNORMAL) Hepatic Function Panel (06/13/2024 12:14 PM EST) Only the most recent of2 resultswithin the time period is included. Bilirubin, Total 2.9(H) 0.0 - 1.0 mg/dL [facility] Comment:Slight Icterus. Bilirubin, Direct 0.5 0.0 - 0.5 mg/dL [facility] Comment:Slight Icterus. Aspartate Amino Transferase 46(H) 5 - 37 U/L [facility] Alanine Aminotransferase 53(H) 0 - 40 U/L [facility] Total Protein 7.8 6.5 - 8.0 g/dL [facility] Albumin Level 4.2 3.5 - 5.0 g/dL [facility] Alkaline Phosphatase 116 39 - 117 U/L [facility] 06/13/2024 12:1 4 PM EST 06/13/2024 1:01 PM EST Nay Malin DO LAB BLOOD ORDERABLES Final R esult [facility] [address] [place] [address] [phone] * (ABNORMAL) Lipid Panel, Standard (06/13/2024 12:14 PM EST) Only the most recent of2 resultswithin the time period is included. Triglycerides 131 <150 mg/dL [facility] Comment:Desirable Triglyceri de: less than 150 mg/dLBorderline High Triglyceride 150-199 mg/dLHigh Triglyceride: 200-499 mg/dLVery High Triglyceride: greater than or equal to 5OO mg/dL Cholesterol 133 <200 mg/dL [facility] Comment:Desirable Cholestero l: less than 200 mg/dLBorderline High Cholesterol: 200-239 mg/dLHigh Cholesterol: greater than 239 mg/dL LDL Cholesterol Calculated 76 <100 mg/dL [facility] Comment:Desirable LDL: less than 100 mg/dLNear Optimal/Above Optimal LDL: 110- 129 mg/dLBorderline High LDL: 130-159 mg/dLHigh LDL: 160-189 mg/dLVery High LDL: greater than or equal to 190 mg/dL HDL Cholesterol 31(L) >40 mg/dL [facility] Comment:Desirable HDL: great er than 40 mg/dL Note: This HDL assay may give artificially low results in patients with liver disease. 06/13/2024 12:1 4 PM EST 06/13/2024 1:01 PM EST us Nya Malin DO LAB BLOOD ORDERABLES Final R esult [facility] [address] [place] [address] [phone] * (ABNORMAL) Basic Metabolic Panel (06/13/2024 12:14 PM EST) Only the most recent of2 resultswithin the time period is included. Sodium 141 135 - 145 mmol/L [facility] Potassium 3.9 3.3 - 5.1 mmol/L [facility] Chloride 109(H) 96 - 108 mmol/L [facility] Carbon Dioxide 26 22 - 29 mmol/L [facility] Anion Gap 10(L) 12 - 20 [facility] Urea Nitrogen (BUN) 17(H) 9 - 16 mg/dL [facility] Creatinine, Serum 0.67 0.5 - 1.4 mg/dL [facility] Estimated Glomerular Filt Rate >60 [facility] Comment:Chronic Kidney Disea se: Estimated GFR < 60 mL/min/1.37s4Fcuwhs Kidney Disease: Estimated GFR < 15 mL/min/1.73m2 Glucose 106 60 - 115 mg/dL [facility] Calcium 8.8 8.4 - 10.2 mg/dL [facility] 06/13/2024 12:1 4 PM EST 06/13/2024 1:01 PM EST us Nay Malin DO LAB BLOOD ORDERABLES Final R esult [facility] [address] [place] [phone] * (ABNORMAL) Vitamin D, 25-Hydroxy, Total, Immunoassay (04/04/2024 1:25 PM EST) Vitamin D 25-OH Total 13.9(L) >30 ng/mL [facility] Comment:Health Based Referen ce Values*< 20 ng/mL Syldadycd64-11 ng/mL Insufficient> 30 ng/mL Sufficient*Sylvia RODRIGUEZ. N Engl J Med. 2007;357:266-280Care must be taken in interpreting Vitamin D results fromdifferent laboratories and methodologies. Published datademonstrated that results from patients undergoinghemodialysis may show a negative bias when tested withvarious automated 25-OH vitamin D assays when compared toLC-MS/MS.When testing samples from patients whose predominant form ofVitamin D is Vitamin D2, such as patients receiving VitaminD2 supplementation, results that are subtherapeutic shouldbe confirmed with another method such as LC-MS/MS. Blood Venous blood specimen / Unknown 04/04/2024 1:25 PM EST 04/04/2024 4:01 PM EST Nay Malin DO LAB BLOOD ORDERABLES Final R esult Performing Organization Address City/[facility]/ZIP Co de Phone Number [facility] [address] [place] [phone] * (ABNORMAL) Albumin, Random Urine W/Creatinine (04/04/2024 1:25 PM EST) Creatinine, Urine 315.65 mg/dL [facility] Microalbumin Urine 224.0 mg/L [facility] Microalbum Creatinine Ratio Ur 70.9(H) <30 ug/mg cr [facility] Comment:Albumin/Creatinine R atio Reference Ranges: Normal: < 30 ug/mg creatinine Microalbuminuria: 30 - 300 ug/mg creatinineClinical Albuminuria: > 300 ug/mg creatinine Urine (Urine, Random) 04/04/2024 1:25 PM EST 04/04/2024 4:06 PM EST Nay Malin DO LAB URINE ORDERABLES Final R esult Performing Organization Address [facility] Co de Phone Number [facility] [address] [place] [phone] * Hepatitis C Antibody with Reflex to HCV, RNA, Quantitative, Real-Time PCR (04/04/2024 1:25 PM EST) Hepatitis C Antibody Nonreactive Nonreactive [facility] Comment:Antibodies to HCV no t detected; does not exclude early acuteHCV infection. Blood Venous blood specimen / Unknown 04/04/2024 1:25 PM EST 04/04/2024 4:01 PM EST Nay Malin DO LAB BLOOD ORDERABLES Final R esult Performing Organization Address City/[facility]/ZIP Co de Phone Number [facility] [address] [place] [phone] * Chlamydia/N. Gonorrhoeae RNA, TMA, Urogenitial (04/04/2024 1:25 PM EST) CT PCR NOT DETECTED Not Detect. [facility] Comment:A not detected test result does not exclude the possibilityof infection because test results can be affected byimproper specimen collection, concurrent antibiotic therapy,or the number of organisms in the specimen which may bebelow the sensitivity of the test. As with many diagnostictests, results from the Xpert CT/NG assay should beinterpreted in conjunction with other laboratory andclinical data available to the clinician.Xpert CT/NG performance has not been evaluated in patientsless than 14 years of age. The assay should not be used forthe evaluationof suspected sexual abuse or for other medico-legalindications. Additional testing is recommended in anycircumstance when false positive or false negative resultscould lead to adverse medical, social or psychologicalconsequences. NG PCR NOT DETECTED Not Detect. [facility] Comment:A not detected test result does not exclude the possibilityof infection because test results can be affected byimproper specimen collection, concurrent antibiotic therapy,or the number of organisms in the specimen which may bebelow the sensitivity of the test. As with many diagnostictests, results from the Xpert CT/NG assay should beinterpreted in conjunction with other laboratory andclinical data available to the clinician.Xpert CT/NG performance has not been evaluated in patientsless than 14 years of age. The assay should not be used forthe evaluationof suspected sexual abuse or for other medico-legalindications. Additional testing is recommended in anycircumstance when false positive or false negative resultscould lead to adverse medical, social or psychologicalconsequences. Urine Urethral structure / Unknown 04/04/2024 1:25 PM EST 04/04/2024 4:06 PM EST Narrative [facility] - 04/04/2024 5:43 PM EST Urine us Nay Malin DO LAB MICROBIOLOGY - GENERAL O RDERABLES Final Result [facility] [address] [place] [phone] * Hepatitis B surface antigen, EIA (04/04/2024 1:25 PM EST) Hepatitis B Surface Ag Negative Negative [facility] Blood Venous blood specimen / Unknown 04/04/2024 1:25 PM EST 04/04/2024 4:01 PM EST Nay Malin DO LAB BLOOD ORDERABLES Final R esult [facility] [address] [place] [phone] * (ABNORMAL) Fructosamine (04/04/2024 1:25 PM EST) Fructosamine 432(A) 205 - 285 umol/L [facility] Comment:THIS TEST WAS PERFOR MED AT:[id number] [place] [id number] LAU MD,PHD Blood Venous blood specimen / Unknown 04/04/2024 1:25 PM EST 04/04/2024 4:01 PM EST us Nay Malin DO LAB BLOOD ORDERABLES Final R esult Performing Organization Address [facility]/ZIP Co de Phone Number [facility] [address] [place] [phone] * RPR (Monitor) with Reflex to??Titer (04/04/2024 1:25 PM EST) RPR (Monitor) w/Refl Titer NON-REACTI VE NON-REACT KEN [facility] Comment:THIS TEST WAS PERFOR MED AT:[facility] [id number] [place] [id number] CESAR MD Rapid Plasma Reagin Ab Titer TNP [facility] Blood Venous blood specimen / Unknown 04/04/2024 1:25 PM EST 04/04/2024 4:01 PM EST Nay Dea DO LAB BLOOD ORDERABLES Final R esult Performing Organization Address [facility] Co de Phone Number [facility] [address] [place] [address] [phone] * HIV-1/2 Antigen and Antibodies, Fourth Generation, with Reflexes (04/04/2024 1:25 PM EST) [facility] HIV AB/AG Nonreactive Nonreactive [facility] Comment:HIV-1 p24 Ag and/or HIV-1/HIV-2 Ab not detected.A test result that is nonreactive does not exclude thepossibility of exposure to or infection with HIV-1 and/orHIV-2. Nonreactive results in this assay for individualswith prior exposure to HIV-1 and/or HIV-2 may be due toantigen and antibody levels that are below the limit ofdetection of this assay.The Qualys HIV Ag/Ab Combo assay result andsupplemental assay results should be interpreted inconjunction with the patient's clinical presentation,history and other laboratory results. If the results areinconsistent with clinical evidence, additional testing issuggested to confirm the result. Blood Venous blood specimen / Unknown 04/04/2024 1:25 PM EST 04/04/2024 4:01 PM EST Nay Dea DO LAB BLOOD ORDERABLES Final R esult Performing Organization Address [facility]/ZIP Co de Phone Number [facility] [address] [place] [phone] * Hepatitis B Surface Antibody, Qualitative (04/04/2024 1:25 PM EST) Pathologist [facility] ~Hepatitis B Surface Antibody NONREACTIVE Nonreactive [facility] Comment:Nonreactive: < 8.00 mIU/mL Blood Venous blood specimen / Unknown 04/04/2024 1:25 PM EST 04/04/2024 4:01 PM EST Nay Malin DO LAB BLOOD ORDERABLES Final R esult Performing Organization Address [facility]/ZIP Co de Phone Number [facility] [address] [place] [phone] * (ABNORMAL) CBC (04/04/2024 1:25 PM EST) White Blood Count 9.5 4.8 - 10.8 X10*3/uL [facility] Red Blood Count 2.85(L) 4.60 - 5.80 X10*6/uL [facility] Hemoglobin 10.3(L) 14.0 - 18.0 g/dl [facility] Hematocrit 31.8(L) 42.0 - 52.0 % [facility] Mean Corpuscular Volume 111.6(H) 80.0 - 98.0 fL [facility] Mean Corpuscular Hemoglobin 36.1(H) 27.0 - 33.0 pg [facility] Mean Corpuscular HGB Conc 32.4 31.0 - 36.0 g/dl [facility] Red Cell Distribution Width 13.1 11.0 - 16.0 % [facility] Platelet Count 349 160 - 400 X10*3/uL [facility] Mean Platelet Volume 12.5(H) 9.4 - 12.4 fL [facility] NRBC Pct Auto 3.4(H) 0.0 - 0.2 /100WBC [facility] NRBC Abs Auto 0.320(H) 0.0 - 0.012 X10*3/uL [facility] Blood Venous blood specimen / Unknown 04/04/2024 1:25 PM EST 04/04/2024 4:01 PM EST Nay Malin DO LAB BLOOD ORDERABLES Final R esult Performing Organization Address [facility]/ZIP Co de Phone Number [facility] [address] [place] [phone] * TSH (04/04/2024 1:25 PM EST) Thyroid Stimulating Hormone 1.70 0.32 - 4.0 uIU/mL [facility] Comment:TSH 3rd Generation ( [facility]) Blood Venous blood specimen / Unknown 04/04/2024 1:25 PM EST 04/04/2024 4:01 PM EST Nay Pateldineshsagrario LAB BLOOD ORDERABLES Final R esult Performing Organization Address [facility]/ZIP Co de Phone Number [facility] [address] [place] [phone] * T4, Free (04/04/2024 1:25 PM EST) Free T4 (Free Thyroxine) 0.89 0.71 - 1.85 ng/dL [facility] Blood Venous blood specimen / Unknown 04/04/2024 1:25 PM EST 04/04/2024 4:01 PM EST Nay Dea LAB BLOOD ORDERABLES Final R esult Performing Organization Address [facility] Co de Phone Number [facility] [address] [place] [phone] * Hemoglobin A1c (04/04/2024 1:25 PM EST) Hemoglobin A1c 4.2 <6.0 % [facility] Comment:Hemoglobin A1C Refer ence Range Adults: 4.8 - 6.0 % Non diabetic: < 6.0 % Goal: < 7.0 %Additional Action Suggested: > 8.0 %Note: Hemoglobin A1c results are invalid for patients with abnormal amounts of HbF. Blood transfusions may impact the HbA1c concentration in the patient sample. Estimated Average Glucose 74 mg/dL [facility] Comment:eAG = Estimated ave rage glucose which is %A1C expressed asaverage glucose, using the formula of the I4R-[id number] Glucose study (ADAG), Diabetes Care, Vol.31,#8,2007 Blood Venous blood specimen / Unknown 04/04/2024 1:25 PM EST 04/04/2024 4:01 PM EST Nay Malin DO LAB BLOOD ORDERABLES Final R esult [facility] [address] [place] [phone] * POCT HGB A1C (04/04/2024 12:22 PM EST) Only the most recent of2 resultswithin the time period is included. Hemoglobin A1C 4.9 4.0 - 6.0 % QC Media Lot # [id number] Lot# Expiration Date , Blood 04/04/2024 12:2 2 PM EST Nay Malin DO POINT OF CARE TEST ENTER/NICHOLAS T ORDERABLES Final Result * (ABNORMAL) POCT Glucose (04/04/2024 12:05 PM EST) Only the most recent of2 resultswithin the time period is included. Glucose Blood, POC 308(A) 60 - 200 mg/dL Comment:random QC Media Lot # [id number] Lot# Expiration Date [id number] Blood Capillary blood specimen / Unknown 04/04/2024 12:05 PM EST Nay Malin DO POINT OF CARE TEST ENTER/NICHOLAS T ORDERABLES Final Result from Last 3 Months Insurance [employer] [facility] MEDICA[facility] LIMITED ADULT DENTAL - [facility] (MEDICAID) Care Teams Ceramic Saw Tender Relationship Specialty Start Date End Date Nay Malin DO [address] [place] [phone] PCP - General Family Medicine 05/23/22 Alka Velazquez PharmD [address] [place] [address] Pharmacist Internal Medicine 05/12/24
--- OUTSIDE RECORDS SUMMARY | 2024-06-13 14:18 | XMS_ITS | Encounter Summary ---
Author Organization [facility] Address [address] [place] [address] [address] [place] [address] Care Team Providers Care Grain Sacker Name Role Phone Kadi Jeffrey MD Primary Care Provide r Nay Malin DO Primary Care Provider [phone] Alka Velazquez PharmD Unavailable [phone] Encounter Details Date Type Department Care Team (Latest Contact Info) Description 09/27/2018 Abstract [facility] CONVERSIONS Dental, Provider, DDS Social History Tobacco Use Types Packs/Day Years Used Date Smoking Tobacco: Never Assessed Sex and Gender Information Value Date Recorded Sex Assigned at Male 02/10/2022 10:21 AM EDT Legal Sex Male 10:21 AM EDT Gender Identity Male 12/24/2022 9:46 AM EDT Sexual Orientation Straight 01/16/2023 2: 07 PM EDT documented as of this encounter Plan of Treatment Upcoming Encounters Date Type Department Care Team (Late st Contact Info) Description 06/15/2024 9:30 AM EST Medication Management [facility] MEDICINE [address] [place] [address] Alka Velazquez, PharmD [address] [place] [address] 07/19/2024 9:45 AM EDT Office Visit [facility] OPTOMETRY [address] [place] [address] TarkaBrittny, OD [address] [place] [address] documented as of this encounter Visit Diagnoses Not on filedocumented in this encounter Care Teams Grain Sacker Relationship Specialty Start Date End Date Kadi Jeffrey MD [address] [place] [address] PCP - General Family Medicine 12/23/17 05/22/22 Nay Malin DO [address] [place] [address] PCP - General Family Medicine 05/23/22 Alka Velazquez PharmD [address] [place] [address] Pharmacist Internal Medicine 05/12/24 documented as of this encounter
--- OUTSIDE RECORDS SUMMARY | 2024-06-13 14:18 | XMS_ITS | Encounter Summary ---
Author Organization [employer] Address [address] [facility] [address] [place] [address] Care Team Providers Care Manager Physical Name Role Phone RichNay zabala Primary Care Provider [phone] Alka Velazquez PharmD Unavailable [phone] Reason for Visit * Reason Onset Date Comments woke up sick 05/13/2024 Encounter Details Date Type Department Care Team ([facility] st Contact Info) Description 05/13/2024 Telephone [facility] ADULT DENTAL [address] [place] [address] Arsalan Fair DDS [address] [place] [address] woke up sick Social History Tobacco Use Types Packs/Day Years [...] PM EDT documented as of this encounter Miscellaneous Notes * Telephone Encounter - Lashaun Quintana - 05/13/2024 8:10 AM EST Patieint called in to report that he missed his 8am visit because he woke up with fever and chills and he is COVID positive. Patient informed that office will be informed and office will reach out karla PETTY documented in this encounter Plan of Treatment Upcoming Encounters Date Type Department Care Team (Late st Contact Info) Description 06/15/2024 9:30 AM EST Medication Management [facility] MEDICINE [address] [place] [address] Alka Velazquez, PharmD [address] [place] [address] 07/19/2024 9:45 AM EDT Office Visit [facility] OPTOMETRY [address] [place] [address] Brittny Benjamin, OD [address] [place] [address] documented as of this encounter Visit Diagnoses Not on filedocumented in this encounter Additional Health Concerns Assessment Noted Time PHQ-9 Depression Total Score: 0 01/24/20 9:35 AM EDT documented as of this encounter Care Teams Manager Physical Relationship Specialty Start Date End Date Nay Malin DO [address] [place] [address] PCP - General Family Medicine 05/23/22 Alka Velazquez PharmD [address] [place] [address] Pharmacist Internal Medicine 05/12/24 documented as of this encounter
--- OUTSIDE RECORDS SUMMARY | 2024-06-13 14:18 | XMS_ITS | Encounter Summary ---
Author Organization [employer] Address [address] [facility] [address] [place] [address] Care Team Providers Care [employer] Infrastructure Consultant Name Role Phone Nay Malin DO Primary Care Provider [phone] Alka Velazquez PharmD Unavailable [phone] Encounter Details Date Type Department Care Team ([facility] st Contact Info) Description 02/25/[address] [facility] MEDICINE [address] [place], [place] [phone] Nay Malin DO [address] [place] [address] Social History Tobacco Use Types Packs/Day Years [...] Description 06/15/2024 9:30 AM EST Medication Management [facility] MEDICINE [address] [place] [address] Alka Velazquez PharmD [address] [place] [address] 07/19/2024 9:45 AM EDT Office Visit [facility] OPTOMETRY [address] [place] [address] TarBrittny brumfield, OD [address] [place] [address] documented as of this encounter Visit Diagnoses Not on filedocumented in this encounter Additional Health Concerns Assessment Noted Time PHQ-9 Depression Total Score: 0 01/24/20 9:35 AM EDT documented as of this encounter Care Teams [employer] Consultant Relationship Specialty Start Date End Date Nay Malin DO [address] [place] [phone] PCP - General Family Medicine 05/23/22 Alka Velazquez, PharmD [address] [place] [phone] Pharmacist Internal Medicine 05/12/24 documented as of this encounter
[2024-06-22 17:08] LABS: Fructosamine 270 umol/L (205-285)
== END 2024-06-13 12:13 | disposition home or self-care (01) ==
LOC: HO.HHCL 12:12
PROVIDERS: Visit Provider Family Medicine
DX: E78.5 Hyperlipidemia, unspecified (principal); D59.4 Other nonautoimmune hemolytic anemias; E83.19 Other disorders of iron metabolism; E11.69 Type 2 diabetes mellitus with other specified complication; Z79.4 Long term (current) use of insulin
CPT/HCPCS: 36415; 80048; 80061; 80076; 82985; 83540

== ENCOUNTER 2024-07-12 10:36 | Outpatient (REF) | payer MEDICAID, OTHER, SELFPAY ==
[2024-07-12 11:52] LABS: Alanine Aminotransferase 35 U/L (0-40); Albumin Level 4.4 g/dL (3.5-5.0); Alkaline Phosphatase 122 U/L (39-117); Anion Gap 6 (12-20); Aspartate Amino Transferase 34 U/L (5-37); Bilirubin Direct 0.7 mg/dL (0.0-0.5); Bilirubin Total 2.8 mg/dL (0.0-1.0); Blood Urea Nitrogen 21 mg/dL (9-16); Calcium 9.2 mg/dL (8.4-10.2); Carbon Dioxide 26 mmol/L (22-29); Chloride 109 mmol/L (96-108); Cholesterol 163 mg/dL (<200); Estimated Glomerular Filt Rate > 60; Glucose Random 118 mg/dL (60-115); HDL Cholesterol 38 mg/dL (>40); Iron 210 mcg/dL (45-160); LDL Cholesterol Calculated 96 mg/dL (<100); Percent Iron Saturation 66 % (15-50); Potassium 3.9 mmol/L (3.3-5.1); Sodium 137 mmol/L (135-145); Total Iron Binding Capacity 316 mcg/dL (228-428); Total Protein 7.9 g/dL (6.5-8.0); Triglycerides 145 mg/dL (<150); Unsaturated Iron Binding 106 ug/dL
--- OUTSIDE RECORDS SUMMARY | 2024-07-12 12:37 | XMS_ITS | Clinical Summary ---
Author Organization [employer] Address [address] [place] [address] 7[address] [place] [address] Care Team Providers Care Cloud Software Engineer Name Role Phone Nay Malin Primary Care Provider [phone] Alka Velazquez PharmD Unavailable [phone] Allergies No known active allergies Medications FreeStyle lancetsIndicat ions:Hyperglyc emia, unspecified 1 each by Other route Once per day. Use bid, dx type 2 diabetes 60 each 11 Active insulin degludec (Tresiba FlexTouch) 100 UNIT/ML injection Inject 10 Units under the skin at bedtime. 3 mL 3 024 2024 Active atorvastatin (Lipitor) 10 MG tablet Take 1 tablet (10 mg) by mouth Once per day. 90 tablet 3 024 2024 Active aspirin 81 MG chewable tablet Chew 1 tablet (81 mg) Once per day. 90 tablet 3 024 2024 Active clotrimazole (Lotrimin) 1 % cream Apply topically 2 times daily. 60 g 2 Active ergocalciferol (Vitamin D2) 1.25 MG (28791 UT) capsule Take 1 capsule (1.25 mg) by mouth 1 (one) time per week. 4 capsule 6 025 Active insulin pen needle (Pentips Generic Pen [place]) 32G x 4 mm misc Use 1 daily for insulin injection, as directed. Active Blood Pressure kit Use to check BP once daily as directed 1 kit 025 Active lisinopril 5 MG tablet Take 1 tablet (5 mg) by mouth Once per day. 90 tablet 1 Active Alcohol Swabs 70 % pads Use up to four daily, as directed, prior to BG testing & insulin administration 100 each Active Continuous Glucose Paper Machine Supervisor (FreeStyle Frederick 3 [place]) device 1 each Once per day. Use as directed for CGM 1 each 025 Active Continuous Glucose Sensor (FreeStyle Frederick 3 Plus Sensor) misc Apply 1 every 15 days as directed for CGM 2 each Active glucose blood (FreeStyle Precision Juwan Test) test strip Use to test blood sugar 2 times daily in case of CGM failure or extremes of BG 50 each 025 2025 Active Diclofenac Sodium 1 % gel Apply 2 g topically if needed in the morning, at noon, in the evening, and at bedtime (pain). 150 g 3 023 2024 Discontinued(M ed list cleanup (will not trigger notification to Pharmacy)) baclofen (Lioresal) 10 MG tablet Take 1 tablet (10 mg) by mouth if needed in the morning, at noon, and at bedtime for muscle spasms. 60 tablet 1 023 2024 Discontinued(M ed list cleanup (will not trigger notification to Pharmacy)) Blood Glucose Monitoring Suppl (FreeStyle Carmi Lite) w/Device kitIndications :Hyperglycemia , unspecified Use to test blood sugar bid dx dm 1 kit 2024 Discontinued(M ed list cleanup (will not trigger notification to Pharmacy)) glucose blood (FREESTYLE LITE) test stripIndicatio ns:Hyperglycem ia, unspecified Use bid. Dx diabetes 60 each 11 024 2024 Discontinued(A lternate therapy) Continuous Glucose Paper Machine Supervisor (FreeStyle Frederick 2 [place]) device Scan sensor every 8 hours 1 each 2024 Discontinued(A lternate therapy) Continuous Glucose Sensor (FreeStyle Frederick 2 Sensor) misc Apply 1 sensor every 14 days 2 each 2024 Discontinued(A lternate therapy) glucose blood (FreeStyle Precision Juwan Test) test strip Use to test blood sugar 3 times daily 100 each 12 024 2024 Discontinued(M ed list cleanup (will not trigger notification to Pharmacy)) acetaminophen (Tylenol) 500 MG tablet Take 1 tablet (500 mg) by mouth every 6 (six) hours if needed for mild pain for up to 20 doses. 20 tablet 025 2024 Discontinued(M ed list cleanup (will not trigger notification to Pharmacy)) ibuprofen 600 MG tablet Take 1 tablet (600 mg) by mouth every 6 (six) hours if needed for mild pain for up to 20 doses. 20 tablet 025 2024 Discontinued(M ed list cleanup (will not trigger notification to Pharmacy)) chlorhexidine (Peridex) 0.12 % solution Use 15 mL in the mouth or throat if needed in the morning, at noon, and at bedtime (PROPHYLAXIS) for up to 5 days. 110 mL 025 2024 Discontinued(M ed list cleanup (will not trigger notification to Pharmacy)) amoxicillin (Amoxil) 500 MG capsule Take 1 capsule (500 mg) by mouth every 8 (eight) hours for 7 days. 21 capsule 025 2024 Discontinued(T herapy completed) acetaminophen (Tylenol) 500 MG tablet Take 1 tablet (500 mg) by mouth every 8 (eight) hours if needed for mild pain or moderate pain for up to 5 days. 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 He is currently taking [...] Jadenu. He would get MRI here at [facility]. I think he can get ear and ear exams in [facility]. I told him to get CMP [...] Encounters Date Type Department Care Team Description 06/28/2024 Telephone [facility] Lauren [place], [place] [address] Nay Malin DO 06/16/2024 8:00 AM EST Office Visit [facility] [address], [place] [address] Saige Fowler 06/16/2024 Telephone [facility] [place], [place] [address] Alka Velazquez PharmD Prior Authorization ([facility] Frederick 3 -- team RNs to complete ) 06/15/2024 Telephone [facility] Lauren [place], [place] [address] Nay Malin DO Care Coordination 06/15/2024 Travel 06/13/2024 Orders Only [facility] Lauren [place], [place] [address] Nay Malin DO 05/13/2024 Telephone [facility] Lauren [place], [place] [address] Arsalan Fair DDS woke up sick 05/11/2024 8:00 AM EST Office Visit [facility] [place], [place] [address] Saige Fowler 05/06/2024 2:30 PM EST Office Visit [facility] Lauren [place], [place] [address] Saige Fowler 05/04/2024 9:30 AM EST Clinical Support [facility] Lauren [place], [place] [address] Latosha Bartlett, RN 05/04/2024 Travel 04/26/2024 8:00 AM EST Office Visit [facility] Lauren [place], [place] [address] Arsalan Fair DDS Periodontal disease (Primary Dx); Dental calculus 04/21/2024 Refill [facility] Lauren [place], [place] [address] Latosha Bartlett, RN from Last 3 Months Immunizations Name Administration Dates Next Due Hep B, adult 02/04/2016,12/03/2015 HepB-CpG 06/15/2024,05/12/2024 Influenza injectable quadriv alent IIV4 with preservative [...] Sign Reading Time Taken Comments Blood Pressure 130/70 06/16/2024 8:02 AM EST Pulse 61 04/04/2024 12:04 PM [...] Care Team (Late st Contact Info) Description 07/13/2024 9:00 AM EDT Medication Management [facility] [address] [place] [address] Alka Velazquez, PharmD [address] [place] [address] 07/19/2024 9:45 AM EDT Office Visit [facility] [address] [place] [address] TarkaBrittny, OD [address] [place] [address] 07/29/2024 9:00 AM EDT Office Visit [facility] [address] [place] [address] Manjit Jacob DDS [address] [place] [address] Health Maintenance Due Date Last Done Comments [...] 2) 12/02/2023 Depression Screening 01/24/2024 01/23/2023, 01/24/20 SDOH Screening 08/25/2024 08/26/2023 Dental Oral Exam 09/06/2024 03/08/2024, , 09/27/2018, Additional history exists Diabetes: Hemoglobin A1C 10/03/2024 024, 04/04/2024, 03/24/2024 Diabetes: Urine Protein Screening 04/04/2025 04/04/2024 Lipid Panel 06/13/2025 07/12/2024, 03/0 06/2024, 04/04/2024, Additional history exists Tobacco Screening 06/16/2025 06/16/2024 Dental X-Ray: Bitewings 06/17/2025 06/17/19 25, 03/25/2024, 03/08/2024, Additional history exists DTaP/Tdap/Td Vaccines (2 - Td or Tdap) [...] Additional history exists Hepatitis B Vaccines Completed 06/15/2024, 05/12/2024, 02/04/2016, Additional history exists HPV Vaccines Aged Out No longer eligi [...] Associated Diagnosis Comments LIPID PANEL, STANDARD Routine 07/12/2024 10:39 AM EDT IRON AND TOTAL IRON BINDING CAPACITY Routine 07/12/2024 10:39 AM EDT BASIC METABOLIC PANEL Routine 07/12/2024 10:39 AM EDT HEPATIC FUNCTION PANEL Routine 10:39 AM EDT BITEWING - SINGLE RADIOGRAPHIC IMAGE Routine 06/16/2024 8:00 AM EST CASE PRESENTATION, DETAILED AND EXTENSIVE TREATMENT PLANNING Routine 06/16/2024 8:00 AM EST 19,30 MANDIBULAR PARTIAL DENTURE - RESIN BASE (INCLUDING, RETENTIVE/CLASPING MATERIALS, RESTS, AND TEETH) Routine 06/16/2024 8:00 AM EST 17 O RESIN-BASED COMPOSITE - 1 SURF, POSTERIOR Routine 06/16/2024 8:00 AM EST FRUCTOSAMINE Routine 06/13/2024 12:14 PM EST LIPID PANEL, [...] PER QUADRANT Routine 04/26/2024 8:00 AM EST HEPATITIS C AB W/REFL TO HCV RNA, [...] New onset type 2 diabetes mellitus (CMS/HCC) INTRAORAL - COMPLETE SERIES OF RADIOGRAPHIC IMAGES Routine 03/08/2024 8:00 AM EST COMPREHENSIVE ORAL EVALUATION - NEW OR ESTABLISHED PATIENT Routine 03/08/2024 8:00 AM EST PROPHYLAXIS - ADULT Routine 03/28/2019 1 2:00 AM EST from Last 3 Months or Most Recently Relevant to Health Maintenance Results * (ABNORMAL) Iron And Total Iron Binding Capacity (07/12/2024 10:39 AM EDT) Only the most recent of2 resultswithin the time period is included. Iron 210(H) 45 - 160 mcg/dL [facility] Total Iron Binding Capacity 316 228 - 428 mcg/dL [facility] Percent Iron Saturation 66(H) 15 - 50 % [facility] Unsaturated Iron Binding 106 ug/dL [facility] 07/12/2024 10:3 9 AM EDT 07/12/2024 11:17 AM EDT us Nay Malin DO LAB BLOOD ORDERABLES Final R esult Performing Organization Address City/State/[facility] Co de Phone Number [facility] [address] [place] [phone] * (ABNORMAL) Hepatic Function Panel (07/12/2024 10:39 AM EDT) Only the most recent of2 resultswithin the time period is included. Bilirubin, Total 2.8(H) 0.0 - 1.0 mg/dL [facility] Comment:Slight Icterus. Bilirubin, Direct 0.7(H) 0.0 - 0.5 mg/dL [facility] Comment:Slight Icterus. Aspartate Amino Transferase 34 5 - 37 U/L [facility] Alanine Aminotransferase 35 0 - 40 U/L [facility] Total Protein 7.9 6.5 - 8.0 g/dL [facility] Albumin Level 4.4 3.5 - 5.0 g/dL [facility] Alkaline Phosphatase 122(H) 39 - 117 U/L [facility] 07/12/2024 10:3 9 AM EDT 07/12/2024 11:17 AM EDT us Nay Malin DO LAB BLOOD ORDERABLES Final R esult [facility] [address] [place] [address] [phone] * (ABNORMAL) Lipid Panel, Standard (07/12/2024 10:39 AM EDT) Only the most recent of2 resultswithin the time period is included. Triglycerides 145 <150 mg/dL [facility] Comment:Desirable Triglyceri de: less than 150 mg/dLBorderline High Triglyceride 150-199 mg/dLHigh Triglyceride: 200-499 mg/dLVery High Triglyceride: greater than or equal to 5OO mg/dL Cholesterol 163 <200 mg/dL [facility] Comment:Desirable Cholestero l: less than 200 mg/dLBorderline High Cholesterol: 200-239 mg/dLHigh Cholesterol: greater than 239 mg/dL LDL Cholesterol Calculated 96 <100 mg/dL [facility] Comment:Desirable LDL: less than 100 mg/dLNear Optimal/Above Optimal LDL: 110- 129 mg/dLBorderline High LDL: 130-159 mg/dLHigh LDL: 160-189 mg/dLVery High LDL: greater than or equal to 190 mg/dL HDL Cholesterol 38(L) >40 mg/dL [facility] Comment:Desirable HDL: great er than 40 mg/dL Note: This HDL assay may give artificially low results in patients with liver disease. 07/12/2024 10:3 9 AM EDT 07/12/2024 11:17 AM EDT us Nay Malin DO LAB BLOOD ORDERABLES Final R esult [facility] [address] [place] [phone] [phone] * (ABNORMAL) Basic Metabolic Panel (07/12/2024 10:39 AM EDT) Only the most recent of2 resultswithin the time period is included. Pathologist [facility] Sodium 137 135 - 145 mmol/L [facility] Potassium 3.9 3.3 - 5.1 mmol/L [facility] Chloride 109(H) 96 - 108 mmol/L [facility] Carbon Dioxide 26 22 - 29 mmol/L [facility] Anion Gap 6(L) 12 - 20 [facility] Urea Nitrogen (BUN) 21(H) 9 - 16 mg/dL [facility] Creatinine, Serum 0.64 0.5 - 1.4 mg/dL [facility] Estimated Glomerular Filt Rate >60 [facility] Comment:Chronic Kidney Disea se: Estimated GFR < 60 mL/min/1.23w5Xctbtu Kidney Disease: Estimated GFR < 15 mL/min/1.73m2 Glucose 118(H) 60 - 115 mg/dL [facility] Calcium 9.2 8.4 - 10.2 mg/dL [facility] 07/12/2024 10:3 9 AM EDT 07/12/2024 11:17 AM EDT us Nay Malin LAB BLOOD ORDERABLES Final R esult Performing Organization Address City/[facility] Co de Phone Number [facility] [address] [place] [phone] * Fructosamine (06/13/2024 12:14 PM EST) Fructosamine 270 205 - 285 umol/L [facility] Comment:THIS TEST WAS PERFOR MED AT:[id number] [place] [address]SZMSAYQSILVINA LAU MD,PHD 06/13/2024 12:1 4 PM EST 06/13/2024 1:01 PM EST us Nayemmett Malin [employer] LAB BLOOD ORDERABLES Final R esult Performing Organization Address City/[facility]/ZIP Co de Phone Number [facility] [address] [place] [phone] * (ABNORMAL) Albumin, Random Urine W/Creatinine (04/04/2024 1:25 PM EST) Creatinine, Urine 315.65 mg/dL [facility] Microalbumin Urine 224.0 mg/L [facility] Microalbum Creatinine Ratio Ur 70.9(H) <30 ug/mg cr [facility] Comment:Albumin/Creatinine R atio Reference Ranges: Normal: < 30 ug/mg creatinine Microalbuminuria: 30 - 300 ug/mg creatinineClinical Albuminuria: > 300 ug/mg creatinine Urine (Urine, Random) 04/04/2024 1:25 PM EST 04/04/2024 4:06 PM EST Nay Malin LAB URINE ORDERABLES Final R ult Performing Organization Address [facility]/ZIP Co de Phone Number [facility] [address] [place] [phone] * Hepatitis C Antibody with Reflex to HCV, RNA, Quantitative, Real-Time PCR (04/04/2024 1:25 PM EST) Hepatitis C Antibody Nonreactive Nonreactive [facility] Comment:Antibodies to HCV no t detected; does not exclude early acuteHCV infection. Blood Venous blood specimen / Unknown 04/04/2024 1:25 PM EST 04/04/2024 4:01 PM EST Nay Malin LAB BLOOD ORDERABLES Final R esult Performing Organization Address [facility] Co de Phone Number [facility] [address] [place] [phone] * HIV-1/2 Antigen and Antibodies, Fourth Generation, with Reflexes (04/04/2024 1:25 PM EST) HIV AB/AG Nonreactive Nonreactive [facility] Comment:HIV-1 p24 Ag and/or HIV-1/HIV-2 Ab not detected.A test result that is nonreactive does not exclude thepossibility of exposure to or infection with HIV-1 and/orHIV-2. Nonreactive results in this assay for individualswith prior exposure to HIV-1 and/or HIV-2 may be due toantigen and antibody levels that are below the limit ofdetection of this assay.The MeltyniNexgence HIV Ag/Ab Combo assay result andsupplemental assay results should be interpreted inconjunction with the patient's clinical presentation,history and other laboratory results. If the results areinconsistent with clinical evidence, additional testing issuggested to confirm the result. Blood Venous blood specimen / Unknown 04/04/2024 1:25 PM EST 04/04/2024 4:01 PM EST Nay Malin DO LAB BLOOD ORDERABLES Final R esult [facility] [address] [place] [phone] * POCT HGB A1C (04/04/2024 12:22 PM EST) Hemoglobin A1C 4.9 4.0 - 6.0 % QC Media Lot # [id number] Lot# Expiration Date Blood 04/04/2024 12:2 2 PM EST Nay Malin DO POINT OF CARE TEST ENTER/NICHOLAS T ORDERABLES Final Result from Last 3 Months or Most Recently Relevant to Health Maintenance Insurance [employer] H[employer] FULL D[facility]AL-[facility] MEDICAID LIMITED ADULT DENTAL - HSN FULL (MEDICAID) Care Teams Cloud Software Engineer Relationship Specialty Start Date End Date Nay Malin DO [address] [place] [address] PCP - General Family Medicine 05/23/22 Alka Velazquez PharmD [address] [place] [address] Pharmacist Internal Medicine 05/12/24
--- OUTSIDE RECORDS SUMMARY | 2024-07-12 12:37 | XMS_ITS | Encounter Summary ---
Author Organization [employer] Address [address] [place] [address] [address] [place] [address] Care Team Providers Care Reliability Technologist Name Role Phone Nay Malin Primary Care Provider [phone] PuAlka howell PharmD Unavailable [phone] Reason for Visit * Reason Onset Date Comments Prior Authorization 06/16/2024 [facility] Frederick 3 -- team RNs to complete Encounter Details Date Type Department Care Team ([facility] st Contact Info) Description 06/16/2024 Telephone [facility] [address] [place] [address] Puia, Alka, PharmD [address] [place] [address] Prior Authorization ([facility] [employer] 3 -- team RNs to complete ) Social History Tobacco Use Types Packs/Day Years [...] the past 12 months, has t he [employer], gas, oil or water company threatened to [...] encounter Miscellaneous Notes * Telephone Encounter - Trish Montiel - 07/11/2024 2:57 PM EDT Per [facility] Drug Utilization Review, Freestyle Frederick 3 was denied because patient was just approved for Freestyle Frederick 2 about 2 months ago and that CGM is still currently available. PA can be attempted when supplies for Frederick 2 is no longer available. * Telephone Encounter - Valentine Jj RN - 06/22/2024 1:06 PM EDT [facility]I [facility] 3 sensors and reader, sensors denialstates information provided did not contain sufficient information to determine medical necessity. The reader denial states this was already approved for 1 year on 04/18/24. Sending the letters to scan * Telephone Encounter - Latosha Bartlett RN - 06/16/2024 2:45 PM EST Continuous Glucose Monitor Prior Authorization Documentation: CGM PA initiated for: Freestyle Frederick 3 reader, sensor and modesto test strips Insurance: [employer] PA form completed and faxed to [phone]. Patient's preferred pharmacy: [facility] - [place], [place] - [address] [facility] [address] [facility] [phone] CGM PA should be approved by: 06/23/2024 Cathy Dobbins does not need a teaching appointment as he is converting from Freestyle Frederick 2 to Freestyle Frederick 3. * Telephone Encounter - Alka Velazquez PharmD - 06/16/2024 2:01 PM EST Forwarding to RN team - please compete PA for patient to transition from Frederick 2 to Frederick 3 CGM in the next few weeks. Patient is already aware of this plan & does not require a teaching appointment with RNs. Thank you. As documented in CDTM note - patient would benefit from ongoing CGM use. New RXs issued for Freestyle Libe 3 reader & Frederick 3 plus sensors today to replace Frederick 2 which will be discontinued by internet sales director later this year. [facility] reviewed use & differences vs former sensor (sensor size, wear length 15d, no scans needed, application, etc) in CDTM apt. Patient confirmed understanding, denies q uestions. documented in this encounter Plan of Treatment Upcoming Encounters Date Type Department Care Team (Late st Contact Info) Description 07/13/2024 9:00 AM EDT Medication Management [facility] [address] [place], [place] [phone] Alka Velazquez PharmD [address] [place] [address] 07/19/2024 9:45 AM EDT Office Visit [facility] [address] [place] [address] Brittny Benjamin, OD [address] [place] [address] 07/29/2024 9:00 AM EDT Office Visit [facility] [address] [place] [address] Manjit Jacob DDS [address] [place] [address] documented as of this encounter Visit Diagnoses Not on filedocumented in this encounter Additional Health Concerns Assessment Noted Time PHQ-9 Depression Total Score: 0 01/24/20 9:35 AM EDT documented as of this encounter Care Teams Reliability Technologist Relationship Specialty Start Date End Date Nay Malin DO [address] [place] [phone] PCP - General Family Medicine 05/23/22 Alka Velazquez PharmD [address] [place] [address] [phone] Pharmacist Internal Medicine 05/12/24 documented as of this encounter
--- OUTSIDE RECORDS SUMMARY | 2024-07-12 12:37 | XMS_ITS | Encounter Summary ---
Author Organization [id number] Address [address] [facility] 7t [place] [address] Care Team Providers Care Tufter Operator Name Role Phone Nay Malin DO Primary Care Provider [phone] Alka Velazquez PharmD Unavailable [phone] Reason for Visit * Reason Comments Med Refill Encounter Details Date Type Department Care Team ([facility] st Contact Info) Description 07/08/2023 Refill [facility] [address] [place], [place] [phone] Nay Malin DO [address] [place] [address] Social History Tobacco Use Types Packs/Day Years [...] Description 07/13/2024 9:00 AM EDT Medication Management [facility] [address] [place] [address] Alka Velazquez, PharmD [address] [place] [address] 07/19/2024 9:45 AM EDT Office Visit [facility] [address] [place] [address] Tarka, Brittny, OD [address] [place] [address] 07/29/2024 9:00 AM EDT Office Visit [facility] ADULT D[facility] [address] [place] [address] Manjit Jacob, DDS [address] [place] [address] documented as of this encounter Visit Diagnoses Not on filedocumented in this encounter Additional Health Concerns Assessment Noted Time PHQ-9 Depression Total Score: 0 01/24/20 9:35 AM EDT documented as of this encounter Care Teams Tufter Operator Relationship Specialty Start Date End Date Nay Malin DO [address] [place] [address] PCP - General Family Medicine 05/23/22 Alka Velazquez PharmD [address] [place] [phone] Pharmacist Internal Medicine 05/12/24 documented as of this encounter
--- OUTSIDE RECORDS SUMMARY | 2024-07-12 12:37 | XMS_ITS | Encounter Summary ---
Author Organization [employer] [facility] Address [address] [facility] 7t [place] [address] Care Team Providers Care Global Chief Creative Officer Name Role Phone Kadi Jeffrey MD Primary Care Provide r Nay Malin DO Primary Care Provider [phone]- Alka Velazquez PharmD Unavailable [phone] Encounter Details Date Type Department Care Team (Latest Contact Info) Description 09/27/2018 Abstract [facility] Dental, Provider, DDS Social History Tobacco [...] Description 07/13/2024 9:00 AM EDT Medication Management [facility] [address] [place] [address] Alka Velazquez, PharmD [address] [place] [address] 07/19/2024 9:45 AM EDT Office Visit [facility] [address] [place] [address] Brittny Benjamin, OD [address] [place] [address] 07/29/2024 9:00 AM EDT Office Visit [facility] [address] [place] [address] Manjit Jacob DDS [address] [place] [address] documented as of this encounter Visit Diagnoses Not on filedocumented in this encounter Care Teams Global Chief Creative Officer Relationship Specialty Start Date End Date Kadi Jeffrey MD [address] [place] [address] PCP - General Family Medicine 12/23/17 05/22/22 Nay Malin DO [address] [place] [address] PCP - General Family Medicine 05/23/22 Alka Velazquez PharmD [address] [place] [address] [phone] Pharmacist Internal Medicine 05/12/24 documented as of this encounter
--- OUTSIDE RECORDS SUMMARY | 2024-07-12 12:37 | XMS_ITS | Referral Summary ---
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 He is currently taking [...] Jadenu. He would get MRI here at [facility]. I think he can get ear and ear exams in [facility]. I told him to get CMP [...] it. I sent another prescription to our [facility] specialty pharmacy today. The patient will let [...] monthly. The patient lives quite far from [facility]. 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
--- OUTSIDE RECORDS SUMMARY | 2024-07-12 12:37 | XMS_ITS | Encounter Summary ---
Author Organization [employer] Address [address] [facility] [address] [place] [address] Care Team Providers Care Reel Film Inspector Name Role Phone RichNay zabala Primary Care Provider [phone] Alka Velazquez PharmD Unavailable [phone] Reason for Visit * Reason Onset Date Comments woke up sick 05/13/2024 Encounter Details Date Type Department Care Team ([facility] st Contact Info) Description 05/13/2024 Telephone [facility] [address] [place] [address] Arsalan Fair DDS [address] [place] [address] woke up sick Social History Tobacco Use [...] Description 07/13/2024 9:00 AM EDT Medication Management [facility] [address] [place] [address] Alka Velazquez, PharmD [address] [place] [address] 07/19/2024 9:45 AM EDT Office Visit [facility] [address] [place] [address] Brittny Benjamin, OD [address] [place] [address] 07/29/2024 9:00 AM EDT Office Visit [facility] [address], [place] [phone] aMnjit Jacob DDS [address], [place] [phone] documented as of this encounter Visit Diagnoses Not on filedocumented in this encounter Additional Health Concerns Assessment Noted Time PHQ-9 Depression Total Score: 0 01/24/20 23 9:35 AM EDT documented as of this encounter Care Teams Reel Film Inspector Relationship Specialty Start Date End Date Nay Malin DO [address] [place] [address] PCP - General Family Medicine 05/23/22 Alka Velazquez PharmD [address] [place] [address] Pharmacist Internal Medicine 05/12/24 documented as of this encounter
--- OUTSIDE RECORDS SUMMARY | 2024-07-12 12:37 | XMS_ITS | Clinical Summary ---
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 He is currently taking [...] Jadenu. He would get MRI here at [facility]. I think he can get ear and ear exams in [facility]. I told him to get CMP monthly [...] it. I sent another prescription to our [facility] specialty pharmacy today. The patient [...] monthly. The patient lives quite far from [facility]. 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 [...] ( - season) 2023 01/23/2023, 09/10/2020, 08/12/2020 Colon Cancer Screening 01/24/2024 FOBT / Fit Test 01/24/2024 01/23/2023 Alcohol/Substance Use Screening 04/13/2024 Depression Screening and Follow-Up 04/13/2024 Social Drivers of Health [place]ita ual Screening 04/13/2024 Influenza Vaccine (Season Ended) 2024 01/23/2023, 01/07/2016, 01/31/2013 DTaP,Tdap,and Td Vaccines (2 - Td or Tdap) 12/02/2025 12/03/2015 RSV Vaccine (60+ years old a nd patients) (1 - 1-dose 75+ series) 2048 Hepatitis C Screening Completed 01/23/2023 Pneumococcal Vaccine: 50+ Years Completed 3 Care Teams Phlebotomist Prn Relationship Specialty Start Date End Date Nay Malin [address] [place] [id number] PCP - General Family Medicine 03/02/23
--- OUTSIDE RECORDS SUMMARY | 2024-07-12 12:37 | XMS_ITS | Encounter Summary ---
Author Organization [employer] Address [address] [facility] [address]t [place] [address] Care Team Providers Care Sliver Handler Name Role Phone Nay Malin DO Primary Care Provider [phone] Alka Velazquez PharmD Unavailable [phone] Encounter Details Date Type Department Care Team ([facility] st Contact Info) Description 02/25/2023 Orders Only [facility] [address] [place], [place] [phone] Nay Malin DO [address] [place] [address] Social History Tobacco Use Types Packs/Day Years [...] Description 07/13/2024 9:00 AM EDT Medication Management [facility] [address] [place] [address] Alka Velazquez, PharmD [address] [place] [address] 07/19/2024 9:45 AM EDT Office Visit [facility] [address] [place] [address] TarBrittny brumfield, OD [address] [place] [address] 07/29/2024 9:00 AM EDT Office Visit [facility] [address] [place] [address] Manjit Jacob, DDS [address] [place] [address] documented as of this encounter Visit Diagnoses Not on filedocumented in this encounter Additional Health Concerns Assessment Noted Time PHQ-9 Depression Total Score: 0 01/24/20 23 9:35 AM EDT documented as of this encounter Care Teams Sliver Handler Relationship Specialty Start Date End Date Nay Malin DO [address] [place] [id number] PCP - General Family Medicine 05/23/22 Alka Velazquez PharmD [address] [place] [address] Pharmacist Internal Medicine 05/12/24 documented as of this encounter
[2024-07-15 21:49] LABS: Fructosamine 276 umol/L (205-285)
== END 2024-07-12 10:37 | disposition home or self-care (01) ==
LOC: HO.HHCL 10:36
PROVIDERS: Visit Provider Family Medicine
DX: E78.5 Hyperlipidemia, unspecified (principal); E11.69 Type 2 diabetes mellitus with other specified complication; Z79.4 Long term (current) use of insulin
CPT/HCPCS: 36415; 80048; 80061; 80076; 82985; 83540

== ENCOUNTER 2024-10-03 09:39 | Outpatient (REF) | payer MEDICAID, OTHER, SELFPAY ==
--- OUTSIDE RECORDS SUMMARY | 2024-10-03 10:25 | XMS_ITS | Encounter Summary ---
Author Organization [employer] Address [address] [facility] [address] [place] [address] Care Team Providers Care Steel Division Supervisor Name Role Phone DeaNay Primary Care Provider [phone] Alka Velazquez PharmD Unavailable [phone] Reason for Visit * Reason Onset Date Comments woke up sick 05/13/2024 Encounter Details Date Type Department Care Team ([facility] st Contact Info) Description 05/13/2024 Telephone [facility] [address] [place] [address] Arsalan Fair DDS [address] [place] [address] woke up sick Social History Tobacco Use [...] Care Team (Late st Contact Info) Description 03/24/2025 9:00 AM EST Medication Management [facility] [address] [place] [address] Alka Velazquez, PharmD [address] [place] [address] documented as of this encounter Visit Diagnoses Not on filedocumented in this encounter Additional Health Concerns Assessment Noted Time PHQ-9 Depression Total Score: 0 01/24/20 9:35 AM EDT documented as of this encounter Care Teams Steel Division Supervisor Relationship Specialty Start Date End Date Nay Malin DO [address] [place] [address] PCP - General Family Medicine 05/23/22 Alka Velazquez, RashadD [address] [place] [id number] Pharmacist Internal Medicine 05/12/24 07/12/24 documented as of this encounter
[2024-10-03 11:15] LABS: MANUAL DIFF FLAG NO
[2024-10-03 11:17] LABS: Basophils Absolute Auto 0.1 X10*3/uL (0.0-0.2); Basophils Percent Auto 0.8 % (0-2); Eosinophils Absolute Auto 0.3 X10*3/uL (0.0-0.4); Eosinophils Percent Auto 2.3 % (0-4); Hematocrit 30.3 % (42.0-52.0); Hemoglobin 9.4 g/dl (14.0-18.0); Imm Gran Abs Auto 0.14 X10*3/uL (0.00-0.03); Imm Gran Pct Auto 1.1 % (0.0-0.4); Lymphocytes Absolute Auto 3.4 X10*3/uL (1.2-4.9); Mean Corpuscular Hemoglobin 35.6 pg (27.0-33.0); Mean Corpuscular Volume 114.8 fL (80.0-98.0); Mean Platelet Volume 11.4 fL (9.4-12.4); Monocytes Absolute Auto 1.3 X10*3/uL (0.1-1.2); NRBC Pct Auto 2.5 /100WBC (0.0-0.2); Neutrophils Absolute Auto 7.8 x10*3/uL (2.0-8.3); Neutrophils Percent Auto 59.8 % (45-73); Platelet Count 406 X10*3/uL (160-400); Red Blood Count 2.64 X10*6/uL (4.60-5.80); Red Cell Distribution Width 13.3 % (11.0-16.0)
[2024-10-03 11:44] LABS: Anion Gap 10 (12-20); Blood Urea Nitrogen 21 mg/dL (9-16); Calcium 9.5 mg/dL (8.4-10.2); Carbon Dioxide 23 mmol/L (22-29); Chloride 111 mmol/L (96-108); Estimated Glomerular Filt Rate > 60; Glucose Random 123 mg/dL (60-115); Iron 290 mcg/dL (45-160); Percent Iron Saturation 92 % (15-50); Potassium 3.7 mmol/L (3.3-5.1); Sodium 140 mmol/L (135-145); Total Iron Binding Capacity 315 mcg/dL (228-428); Unsaturated Iron Binding < 25 ug/dL
[2024-10-03 11:46] LABS: Ferritin 1375 ng/mL (20-250)
[2024-10-06 07:39] LABS: Fructosamine 269 umol/L (205-285)
== END 2024-10-03 09:40 | disposition home or self-care (01) ==
LOC: HO.HHCL 09:39
PROVIDERS: PCP Family Medicine; Visit Provider Family Medicine
DX: E11.69 Type 2 diabetes mellitus with other specified complication (principal); Z79.4 Long term (current) use of insulin; E78.49 Other hyperlipidemia; E83.19 Other disorders of iron metabolism; D59.4 Other nonautoimmune hemolytic anemias; Z90.81 Acquired absence of spleen; M25.561 Pain in right knee; M25.562 Pain in left knee; G89.29 Other chronic pain; Z00.00 Encounter for general adult medical examination without abnormal findings
CPT/HCPCS: 36415; 80048; 82728; 82985; 83540; 85025